=== PATIENT | female | born 1940 | race Caucasian/White ===

== ENCOUNTER 2019-06-10 23:10 | Inpatient (IN) | payer MEDICARE ==
[2019-06-11 00:21] LABS: #Basophils 0.1 thou/uL (0.0-0.2); #Lymphocytes 1.5 thou/uL (1.20-3.40); #Monocytes 0.7 thou/uL (0.11-0.59); #Neutrophils 9.1 thou/uL (1.40-6.50); %Basophils 0.5 % (0.0-1.0); %Eosinophils 0.3 % (0.0-10.0); %Monocytes 6.4 % (0.0-10.0); %Neutrophils 79.8 % (42.0-75.0); Hemoglobin 14.3 g/dL (12.0-16.0); Mean Corpuscular Hemoglobin 33.1 pg (27.0-31.0); Mean Corpuscular Volume 94.5 fL (78.0-98.0); Mean Platelet Volume 7.6 fL (7.4-10.4); Platelet Count 306 thou/uL (130-400); Red Blood Cell (RBC) Count 4.32 mill/uL (4.20-5.40); White Blood Cell (WBC) Count 11.5 thou/uL (4.8-10.8)
[2019-06-11 00:43] LABS: ALT (SGPT) 12 U/L (8-55); AST (SGOT) 21 U/L (5-34); Albumin 4.2 g/dL (3.4-4.8); Alkaline Phosphatase 94 U/L (40-150); Anion Gap 21 mmol/L (10-20); BUN (Urea Nitrogen) 56 mg/dL (9.8-20.1); Bilirubin, Total 0.2 mg/dL (0.2-1.2); CK (CPK) 203 U/L (29-168); Calc. Creatinine Clearance 0 mL/min (70-130); Calcium 8.8 mg/dL (7.8-10.44); Carbon Dioxide 10 mmol/L (23-31); Chloride 108 mmol/L (98-107); Estimated GFR-MDRD 17; Globulin 3.4 g/dL (2.4-3.5); Glucose 120 mg/dL (83-110); Potassium 3.6 mmol/L (3.5-5.1); Protein, Total 7.6 g/dL (6.0-8.3); Sodium 135 mmol/L (136-145)
[2019-06-11] MEDS ORDERED: Acetaminophen 650 MG Suppository PR PRN (01:18)
[2019-06-11] MEDS ORDERED: Dextrose 5 %-0.45 % NaCl 1,000 ML IV SCH (01:30)
[2019-06-11] MEDS ORDERED: Sodium Chloride 0.9% (PF) 10 ML VIAL FS PRN (02:11)
[2019-06-11] MEDS ORDERED: Pantoprazole 40 MG VIAL IVP SCH (02:15)
--- NOTE | 2019-06-11 02:15 | PDOC.EVN ---
Event Note - Event Note Event Note: [id number] H&P dictated
[2019-06-11 04:03] VITALS: BMI 28.3
[2019-06-11 04:52] LABS: #Basophils 0.1 thou/uL (0.0-0.2); #Lymphocytes 1.9 thou/uL (1.20-3.40); #Monocytes 0.7 thou/uL (0.11-0.59); #Neutrophils 6.8 thou/uL (1.40-6.50); %Basophils 0.7 % (0.0-1.0); %Eosinophils 0.4 % (0.0-10.0); %Monocytes 7.4 % (0.0-10.0); %Neutrophils 71.5 % (42.0-75.0); Hemoglobin 12.6 g/dL (12.0-16.0); Mean Corpuscular HGB CONC 34.3 g/dL (32.0-36.0); Mean Corpuscular Hemoglobin 32.8 pg (27.0-31.0); Mean Corpuscular Volume 95.6 fL (78.0-98.0); Mean Platelet Volume 7.6 fL (7.4-10.4); Platelet Count 275 thou/uL (130-400); RBC Distribution Width 12.9 % (11.5-14.5); Red Blood Cell (RBC) Count 3.84 mill/uL (4.20-5.40); White Blood Cell (WBC) Count 9.5 thou/uL (4.8-10.8)
[2019-06-11 05:12] LABS: Anion Gap 16 mmol/L (10-20); BUN (Urea Nitrogen) 55 mg/dL (9.8-20.1); Calc. Creatinine Clearance 23 mL/min (70-130); Chloride 111 mmol/L (98-107); Estimated GFR-MDRD 20; Glucose 108 mg/dL (83-110); Potassium 3.3 mmol/L (3.5-5.1); Sodium 133 mmol/L (136-145)
[2019-06-11 05:15] LABS: Carbon Dioxide 9 mmol/L (23-31)
--- NOTE | 2019-06-11 07:46 | HP ---
CHIEF COMPLAINT: Generalized weakness, nausea, and altered mental status. HISTORY OF PRESENT ILLNESS: Ms. Dangelo is a 79-year-old female with past medical history of coronary artery disease, type 2 diabetes, hyperlipidemia, hypertension, not on any medications, presented to the emergency room with generalized weakness, left hip pain, decreased oral intake, abdominal pain, and increasingly confused as per family. The patient stated that she has been having abdominal pain in the last few days and a pain for which she has been taking ibuprofen. Workup in the emergency room, the patient was found to be in acute renal failure with elevated creatinine. Imaging studies were done in the ED. Reports are not available at the time of dictation, but as per ER physician, no acute findings. The patient is being admitted to hospital for further management. PAST MEDICAL HISTORY: 1. Diabetes mellitus, type 2. 2. Hypertension. 3. Hyperlipidemia. 4. Coronary artery disease. PAST SURGICAL HISTORY: 1. Back surgery x2. 2. Coronary artery bypass graft surgery, 4-vessel. SOCIAL HISTORY: She is a cigarette smoker, about 1.5 pack a day. Denies alcohol drinking. ALLERGIES: ALLERGIC TO HYDROCODONE. HOME MEDICATIONS: None. FAMILY HISTORY: Reviewed and noncontributory. REVIEW OF SYSTEMS: Review of 14 systems negative except what is mentioned in history of present illness. PHYSICAL EXAMINATION: GENERAL: The patient is awake, alert, does not appear to be in acute distress. VITAL SIGNS: Blood pressure 160/57, pulse is 83, respiratory rate is 20, temperature is 97.5, pulse oximetry is 98% on 1 L/minute nasal cannula. HEAD AND NECK: Normocephalic and atraumatic. Neck is supple. No JVD. CHEST: Fair bilateral air entry. HEART: S1, S2. Regular. ABDOMEN: Soft with mid abdominal and epigastric tenderness, bowel sounds present. NEUROLOGIC: Awake, alert, oriented. No focal deficits. PSYCH: Unable to assess. EXTREMITIES: No clubbing, no cyanosis. LABORATORY DATA: WBC is 11.5, hemoglobin is 14.3, platelets 306. Sodium 135, potassium 3.6, BUN 56, creatinine 2.6, glucose 120. X-ray of the lumbar spine, chest x-ray, and brain CT done, report is not available at the time of dictation. ASSESSMENT: 1. Acute renal failure. 2. Acute metabolic encephalopathy. 3. Coronary artery disease with history of coronary artery bypass graft surgery. 4. Diabetes mellitus type 2, diet controlled. 5. Cigarette smoker. PLAN: 1. Admit. 2. Cautious IV fluid hydration. 3. Monitor kidney function and urine output. 4. Reassess fluid management in a.m. 5. May need Nephrology consultation in a.m. if no improvement. 6. Avoid nephrotoxic drugs. 7. DVT prophylaxis with SCDs. 8. Expected length of stay two midnights or more. Job ID: [id number]
--- NOTE | 2019-06-11 08:06 | CT ---
PRELIMINARY REPORT/[facility]/EMERGENCY AFTER HOURS PROCEDURE: EXAM: CT Head Without Contrast EXAM DATE/TIME: 06/11/2019 12:21 AM CLINICAL HISTORY: 79 years old, female; Weakness, extremity; Patient HX: Patient complains of left hip pain. . Family s tates that she has weakness and thinks she May be over medicating. TECHNIQUE: Imaging protocol: Computed tomography of the head without contrast. COMPARISON: No relevant prior studies available. FINDINGS: Brain: No mass effect or midline shift. No hemorrhage. Patchy whitte matter hypodensities are nonspec ific but may be seen in small vessel chronic ischemic changes. Ventricles: No ventriculomegaly. Bones/joints: No acute fracture. Sinuses: Visualized sinuses are unremarkable. No fluid levels. Mastoid air cells: Visualized mastoid air cells are well aerated. No mastoid effusion. Soft tissues: Unremarkable. IMPRESSION: No acute intracranial abnormality. Thank you for allowing us to participate in the care of your patient. Dictated and Authenticated by: Sandra Bass MD 06/11/2019 12:35 AM Central Time ([place] & [place]) FINAL REPORT EMERGENCY AFTER HOURS CT BRAIN: FINDINGS/IMPRESSION: I agree with the above provided preliminary interpretation from [facility]. No acute intracranial hemorrhage or mass effect. Compared to 11/06/10 exam. POS: TPC
[2019-06-11] MEDS ORDERED: Famotidine/PF 20 mg/2ml Vial SLOW IVP SCH (09:00)
[2019-06-11] MEDS: Heparin 5,000 UNITS/ML VIAL SC SCH ×2 (09:34→20:46)
[2019-06-11] MEDS: Pantoprazole 40 MG VIAL IVP SCH (09:35)
--- NOTE | 2019-06-11 09:42 | RAD ---
FRONTAL VIEW CHEST: COMPARISON: 06/18/2016. FINDINGS: There is hyperinflation of the lungs with interstitial prominence. Prior sternotomy. Cardiac silhou ette is stable. There is vascular calcification. IMPRESSION: Chronic obstructive pulmonary disease. POS: [facility]
--- NOTE | 2019-06-11 09:42 | RAD ---
LUMBAR SPINE RADIOGRAPH SERIES 2 TO 3 VIEWS: INDICATION: Pain. FINDINGS: Moderate multilevel degenerative changes throughout the lumbar spine are present. There is no acute compression fracture or significant subluxation. Diffuse atherosclerosis is seen. There is mild rig ht convexity curvature of the lumbar spine. IMPRESSION: Diffuse degenerative change without acute compression fracture or significant subluxation identified. POS: [facility]
[2019-06-11] MEDS ORDERED: Sodium Chloride 0.9% 1,000 ML IV SCH (09:45)
[2019-06-11 13:34] LABS: Bilirubin Negative (Negative); Blood, Urine Trace (Negative); Clarity Clear (Clear); Glucose, Urine (Dipstick) Normal (Negative); Leukocyte 25 Leu/uL (Negative); Nitrite Negative (Negative); Protein, Urine (Dipstick) 50 mg/dL (Neg-Trace); RBC/HPF 0-3 HPF (0-3); Squamous Epithelial 0-3 HPF (0-3); Urobilinogen Normal mg/dL (Less than 2); WBC/HPF 0-3 HPF (0-3)
[2019-06-11 13:38] LABS: Bacteria/HPF Rare-Few HPF (None Seen)
[2019-06-11] MEDS ORDERED: Sodium Bicarbonate 150 MEQ in Dextrose 5% in Water 1,000 ML IV SCH (16:00)
[2019-06-11] MEDS ORDERED: Potassium Chloride 40 MEQ in Sodium Chloride 0.9% 500 ML IVPB SCH (17:15)
[2019-06-11 17:46] LABS: Creatinine, Urine 53.93 mg/dL (47-110)
--- NOTE | 2019-06-11 17:54 | CON ---
DATE OF CONSULTATION: 06/11/2019 CONSULTING PHYSICIAN: Dr. Huang. REASON FOR CONSULT: Acute kidney injury. REASON FOR ADMISSION: Weakness and nausea. HISTORY OF PRESENT ILLNESS: This is a 79-year-old white female with history of type 2 diabetes, hypertension, hyperlipidemia, came to the hospital with weakness and she has been having a lot of back pain lately. She has not seen doctor for years now. Last lab was in creatinine was elevated and she remains confused. Nephrology is consulted. The patient is very somnolent. Family was at the bedside. The patient is not taking any medications. PAST MEDICAL HISTORY: Positive for type 2 diabetes, hypertension, hyperlipidemia, coronary artery disease. PAST SURGICAL HISTORY: Back surgery and prior CABG. HOME MEDICATIONS: None. ALLERGIES: TO HYDROCODONE. SOCIAL HISTORY: She smokes 1.5 pack a day. No alcohol use. FAMILY HISTORY: No history of kidney disease. REVIEW OF SYSTEMS: Could not be obtained as the patient is somnolent. PHYSICAL EXAMINATION: GENERAL: This is a thin built white female, no apparent distress. VITAL SIGNS: Temperature 97.6, pulse 78, respiratory rate 18, blood pressure 135/53. HEENT: Atraumatic and normocephalic. Oral mucosa moist. NECK: Supple. CV: S1 and S2 heard. Rate and rhythm regular. RESPIRATORY: Clear. GI: Abdomen is soft. MUSCULOSKELETAL: No tenderness. No edema. DERMATOLOGIC: No skin rash. NEUROLOGIC: Alert and awake. PSYCHIATRIC: Normal mood and affect. LABORATORY DATA: Hemoglobin is 12.6. Potassium 3.3, BUN is 55, creatinine is 2.3. Renal ultrasound is pending. ASSESSMENT AND PLAN: 1. Acute kidney injury. Creatinine is slightly better. We will continue hydration. 2. Severe metabolic acidosis. We will add bicarb. 3. Hypokalemia. We will add potassium supplements. We will check magnesium level. 4. Hyponatremia. 5. Edema, controlled. 6. We will check urine studies and ultrasound. 7. Avoid nephrotoxins. Continue hydration. We will add bicarb and monitor and replace potassium. Job ID: [id number]
--- NOTE | 2019-06-11 18:50 | ULT ---
US Renal Bilateral STANDARD: 06/11/2019 3:47 PM CLINICAL HISTORY: Acute kidney injury. STUDY: Renal ultrasound COMPARISON: None. FINDINGS: Right kidney: Echogenicity: Normal. Masses/cysts: Tiny anechoic cysts measuring up to 1.2 cm in size. Hydronephrosis: Minimal Calcifications: None. Length: 9.7 cm Left kidney: Echogenicity: Normal. Masses/cysts: None. Hydronephrosis: None. Calcifications: None. Length: 9.7 cm Limited visualization of the urinary bladder is unremarkable. IMPRESSION: 1. Minimal right hydronephrosis 2. Right renal cysts
[2019-06-12 05:41] LABS: ALT (SGPT) 14 U/L (8-55); AST (SGOT) 25 U/L (5-34); Albumin 3.4 g/dL (3.4-4.8); Alkaline Phosphatase 84 U/L (40-150); Anion Gap 13 mmol/L (10-20); BUN (Urea Nitrogen) 43 mg/dL (9.8-20.1); Bilirubin, Total 0.3 mg/dL (0.2-1.2); Calc. Creatinine Clearance 36 mL/min (70-130); Calcium 8.5 mg/dL (7.8-10.44); Carbon Dioxide 13 mmol/L (23-31); Chloride 116 mmol/L (98-107); Estimated GFR-MDRD 33; Globulin 2.9 g/dL (2.4-3.5); Glucose 121 mg/dL (83-110); Magnesium 2.2 mg/dL (1.6-2.6); Potassium 3.4 mmol/L (3.5-5.1); Protein, Total 6.3 g/dL (6.0-8.3); Sodium 139 mmol/L (136-145)
[2019-06-12] MEDS: Heparin 5,000 UNITS/ML VIAL SC SCH ×2 (08:53→20:00)
[2019-06-12] MEDS: Pantoprazole 40 MG VIAL IVP SCH (08:55)
[2019-06-12] MEDS ORDERED: Dextrose 5% in Water 1,000 ML IV PRN (11:29)
[2019-06-12] MEDS ORDERED: Dextrose 50% Abboject 50 ML SYRINGE SLOW IVP PRN (11:29)
--- NOTE | 2019-06-12 11:36 | PDOC.HOSPP ---
- Subjective Encounter Date: 06/12/19 Subjective: Two daughters at bedside, able to provide excellent history. Patient is in chair, eyes closed, drifts off to sleep intermittently, will awaken and answer questions. Speech slurred but per family this is improved. Sips of oral fluids. Daughter noted oxygen occasionally reading 80%; while in room, oxygen applied, order entered Baseline activity at home is good - she cooks/goes out on errands. AMS noted by family Sunday 06/10 - Objective Vital Signs & Weight: Vital Signs (12 hours) Temp Pulse Resp BP Pulse Ox 06/12/19 08:00 98.9 F 85 14 188/66 H 91 L 06/12/19 04:10 98.1 F 86 16 181/66 H 92 L Weight Admit Weight 164 lb Weight 164 lb 14.492 oz I&O: 06/11/19 06/12/19 06/13/19 06:59 06:59 06:59 Intake Total 300 800 Output Total 1670 Balance 300 -870 Result Diagrams: 06/11/19 04:27 06/12/19 04:06 Hospitalist ROS - Medication Medications: Active Medications Generic Name Dose Route Start Last Admin Trade Name Freq PRN Reason Stop Dose Admin Heparin Sodium (Porcine) 5,000 units 06/11/19 09:00 06/12/19 08:53 Heparin SC 5,000 units BID DAVID Administration Pantoprazole Sodium 40 mg 06/11/19 09:00 06/12/19 08:55 Protonix IVP 06/14/19 09:01 40 mg DAILY DAVID Administration - Exam General - other findings: Opens eyes briefly with stimulation, then drifts back to sleep Eye: PERRL ENT: dry oral mucosa Neck: supple Heart: RRR Heart - other findings: soft RUSB murmur Respiratory - other findings: Distant, fairly clear Gastrointestinal: soft, non-tender, non-distended Extremities: no edema Skin: no rashes Neurological: no focal deficits Neurological - other findings: slurred speech present, oriented to person, knows daughters names Musculoskeletal: generalized weakness Psychiatric - other findings: Oriented to person, "2019", "half-way" Hosp A/P (1) ARF (acute renal failure) Status: Acute (2) Metabolic acidosis Code(s): E87.2 - ACIDOSIS Status: Acute (3) Acute metabolic encephalopathy Code(s): G93.41 - METABOLIC ENCEPHALOPATHY Status: Acute (4) Coronary artery disease Code(s): I25.10 - ATHSCL HEART DISEASE OF [place] CORONARY ARTERY W/O ANG PCTRS Status: Acute (5) Type 2 diabetes mellitus Status: Acute (6) Tobacco dependence Code(s): F17.200 - NICOTINE DEPENDENCE, UNSPECIFIED, UNCOMPLICATED Status: Acute (7) COPD (chronic obstructive pulmonary disease) Status: Acute (8) Hypokalemia Code(s): E87.6 - HYPOKALEMIA Status: Acute - Plan PT/OT, DVT proph w/heparin Renal - appreciate Dr. Wright, renal US noted, per family urology consult planned. Profound metabolic acidosis without clear etiology; continue bicarb infusion, check AML; benavides noted on exam; appears intravascularly dry Encephalopathy - appears more global, less likely vascular event; general trend toward improvement PT/OT as able Endo - add accuchecks and ISS, clear liquids as tolerated, speech consult noted , participation limited due to encephalopathy DVT proph - heparin Tobacco dependence/COPD - add oxygen prn; goal sat >90%; consider recheck CXR tomorrow if not improving. Hypokalemia - repleted
[2019-06-12] MEDS ORDERED: Bisacodyl 10 MG SUPP PR PRN (14:27)
[2019-06-12] MEDS: Labetalol HCl 100 MG/20 ML VIAL SLOW IVP PRN (15:55)
[2019-06-12] MEDS ORDERED: Potassium Chloride 40 MEQ in Sodium Chloride 0.9% 250 ML 250 ML IVPB SCH (18:15)
--- NOTE | 2019-06-12 18:24 | PRG ---
DATE OF SERVICE: 06/12/2019 SUBJECTIVE: Patient was seen and examined at bedside and overnight events noted. Patient denies any shortness of breath or chest pain or palpitation. No history of nausea or vomiting or diarrhea or fever or chills or cramps. OBJECTIVE: GENERAL: This is an elderly female, in no apparent distress. VITAL SIGNS: Temperature 98.3. Heart rate 82. Respiratory rate 16. Blood pressure 178/60. HEENT: Atraumatic, normocephalic. Oral mucosa is moist NECK: Supple. CARDIOVASCULAR: S1, S2 heard. Rate and rhythm regular. RESPIRATORY: Clear to auscultation. GASTROINTESTINAL: Abdomen is soft. MUSCULOSKELETAL: No tenderness. No edema. DERMATOLOGIC: No skin rash. NEUROLOGIC: Alert and awake and oriented X3. No focal neurologic deficits. Moving all the extremities. PSYCHIATRIC: Mood and affect normal. LABORATORY DATA: Potassium is 3.4, BUN is 43, creatinine is 1.5. ASSESSMENT AND PLAN: 1. Acute kidney injury. Creatinine getting better. 2. Urinary retention. We will have continue on Phillips. We will have Urology consult. 3. Severe metabolic acidosis, better. We will monitor for now. Might add bicarb. 4. Hypokalemia. Replace and monitor. 5. Hyponatremia. 6. Edema, controlled. 7. Altered mentation, better. Renal function seems to be getting better. We will have Urology input also given the urinary retention. Continue Phillips for now. Job ID: [id number]
--- NOTE | 2019-06-12 21:35 | CT ---
CT Abdomen Pelvis WO Con: 06/12/2019 12:00 AM HISTORY: Hydronephrosis COMPARISON: None. TECHNIQUE: Multiple contiguous axial images were obtained and a CT of the abdomen and pelvis without IV contrast . Coronal and sagittal reformats were performed. FINDINGS: This examination is limited for the evaluation of solid organs and vascular structures due to the lac k of intravenous contrast. Lower Chest: Atelectasis in the lung bases. Abdomen: Liver: within normal limits. Bile Ducts: Normal caliber. Gallbladder: Removed Pancreas: within normal limits. Spleen: within normal limits. Adrenals: within normal limits. Kidneys: Subcentimeter hypodensities in both kidneys are too small to definitely characterize but lik efraín represent cysts. No hydronephrosis is seen. Pelvis: Reproductive Organs: No pelvic masses. Ureters: within normal limits. Bladder: Decompressed by a Phillips catheter. Bowel: Normal caliber. Scattered diverticula in the colon. Normal appendix Mesenteric Lymph Nodes: No enlarged mesenteric lymph nodes. Peritoneum: No ascites or free air, no fluid collection. Vessels: Atherosclerotic calcifications in the aorta Retroperitoneum: within normal limits. Abdominal Wall: within normal limits. Bones: Degenerative changes in the spine. IMPRESSION: 1. No evidence of acute intraabdominal or pelvic abnormality. 2. Diverticulosis 3. Bilateral renal cysts
[2019-06-13] MEDS ORDERED: cloNIDine 0.1 MG TAB PO PRN (00:48)
--- NOTE | 2019-06-13 01:16 | CON ---
DATE OF CONSULTATION: 06/12/2019 REQUESTING PHYSICIAN: Mary Wright MD REASON FOR CONSULTATION: Urinary retention. HISTORY OF PRESENT ILLNESS: Ms. Dangelo is a 79-year-old female with no significant past urologic history, who was admitted for altered mental status, abdominal pain, and acute kidney injury. The patient has been having right-sided abdominal and flank pain radiating to her hip for which she has been taking ibuprofen at home. The patient had worsening mental status and her family brought her to the emergency department. She was found to have acute kidney injury. Renal ultrasound demonstrated some very mild dilation of the right renal collecting system and normal left kidney. Per the medical record and per the family evidently, the patient was in urinary retention. Evidently, in and out catheter was performed, which demonstrated minimal residual. However, when indwelling Phillips catheter was placed, there was significant residual. This was not confirmed by Nursing clearly nor by the medical record, but this is the report of the family. The patient since being in the hospital has had very slow improvement in her mental status. The majority of the history is obtained from the medical record, as well as the patient's daughter. The patient's creatinine on admission was 2.38, this improved to 1.54. Urology was consulted for further evaluation. The patient's family denies any history of kidney stones. No recurrent urinary tract infections. She has never had to see a urologist before. She does not receive routine medical care. REVIEW OF SYSTEMS: Unable to obtain secondary to patient's condition. PAST MEDICAL HISTORY: Type 2 diabetes mellitus, hypertension, hyperlipidemia, coronary artery disease. PAST SURGICAL HISTORY: Back surgery x2, coronary artery bypass graft, four-vessel. SOCIAL HISTORY: Smokes 1.5 packs per day. No alcohol. ALLERGIES: HYDROCODONE. HOME MEDICATIONS: None. FAMILY HISTORY: Noncontributory. PHYSICAL EXAMINATION: VITAL SIGNS: Temperature is 98.3, pulse 82, blood pressure 197/71, oxygen saturation 94% on 2 L nasal cannula. GENERAL: She is somnolent in bed, in no apparent distress. HEENT: Normocephalic, atraumatic. NECK: Supple. No masses or lymphadenopathy. CARDIOVASCULAR: Regular rate and rhythm. PULMONARY: Breathing unlabored. ABDOMEN: Soft, thin, nontender/nondistended. No masses or organomegaly. No suprapubic tenderness to palpation. No CVA tenderness. GENITOURINARY: Phillips catheter is in place, draining clear yellow urine. EXTREMITIES: Warm, well perfused. No edema. NEUROLOGIC: The patient able to be awakened and will answer questions, although is somewhat somnolent. RADIOLOGY DATA: Renal ultrasound demonstrates minimal right hydronephrosis and right renal cysts. LABORATORY DATA: White blood cell count 9.5, at admission was 11.5; hemoglobin 12.6; hematocrit 36.7; platelets 275. Sodium 139, potassium 3.4, chloride 116, bicarb 13, BUN 43, creatinine 1.54, 2.3 on admission. ASSESSMENT: A 79-year-old female with minimal right hydronephrosis, acute kidney injury, possible urinary retention, altered mental status. PLAN: Etiology of the patient's symptoms is unclear. It is also unclear whether or not she was truly in urinary retention. She did not have bilateral hydronephrosis and there was only very minimal dilation of the right collecting system on her ultrasound, so etiology of the acute kidney injury may be multifactorial and not entirely obstructive in nature. We will obtain a CT of the abdomen and pelvis to further evaluate the hydronephrosis. This may have resolved and no other Phillips catheter is in place. Further recommendations to follow based on CT results. If CT is normal, will plan to leave the patient's Phillips catheter in place and she can follow up with Urology as an outpatient for further workup of her urinary retention. Thank you for allowing me to participate in the care of this patient. Job ID: [id number]
[2019-06-13 05:46] LABS: #Lymphocytes 1.9 thou/uL (1.20-3.40); #Monocytes 0.8 thou/uL (0.11-0.59); #Neutrophils 4.5 thou/uL (1.40-6.50); %Basophils 0.6 % (0.0-1.0); %Eosinophils 0.6 % (0.0-10.0); %Lymphocytes 26.7 % (21.0-51.0); %Monocytes 10.6 % (0.0-10.0); %Neutrophils 61.5 % (42.0-75.0); Hemoglobin 11.8 g/dL (12.0-16.0); Mean Corpuscular HGB CONC 33.8 g/dL (32.0-36.0); Mean Corpuscular Hemoglobin 32.4 pg (27.0-31.0); Mean Corpuscular Volume 95.6 fL (78.0-98.0); Mean Platelet Volume 7.2 fL (7.4-10.4); Platelet Count 305 thou/uL (130-400); RBC Distribution Width 12.9 % (11.5-14.5); Red Blood Cell (RBC) Count 3.64 mill/uL (4.20-5.40); White Blood Cell (WBC) Count 7.3 thou/uL (4.8-10.8)
[2019-06-13 06:17] LABS: Anion Gap 12 mmol/L (10-20); BUN (Urea Nitrogen) 29 mg/dL (9.8-20.1); Calc. Creatinine Clearance 56 mL/min (70-130); Calcium 9.4 mg/dL (7.8-10.44); Carbon Dioxide 19 mmol/L (23-31); Chloride 116 mmol/L (98-107); Estimated GFR-MDRD 55; Glucose 111 mg/dL (83-110); Potassium 3.7 mmol/L (3.5-5.1); Sodium 143 mmol/L (136-145)
[2019-06-13] MEDS: Heparin 5,000 UNITS/ML VIAL SC SCH ×2 (09:02→20:48)
[2019-06-13] MEDS: Pantoprazole 40 MG VIAL IVP SCH (09:04)
--- NOTE | 2019-06-13 13:02 | PQF ---
CLINICAL DOCUMENTATION IMPROVEMENT CLARIFICATION FORM: ICD-10 Updated PLEASE DO AN ADDENDUM TO THE PROGRESS NOTE WITH ANY DOCUMENTATION UPDATES OR ADDITIONS AND CARRY THROUGH TO DC SUMMARY. THANK YOU. Date: 06/13/19 ATTN: DR. OSCAR Please exercise your independent, professional judgment in responding to the clarification form. Clinical indicators are provided on the bottom of this form for your review Please check appropriate box(s): [ ] Protein Calorie Malnutrition: [ ] Mild [ x] Moderate [ ] Severe [ ] Other Malnutrition (please specify) __ [ ] Underweight without malnutrition [ ] Cachexia [ ] Other diagnosis [ ] Unable to determine In addition, please specify: Present on Admission (POA): [ x ] Yes [ ] No [ ] Unable to determine CLINICAL INDICATORS - SIGNS / SYMPTOMS / LABS DIETARY NOTE 06/11: "NOT BEEN EATING WELL FOR 3 WEEKS...ONLY BITES HERE AND THERE." "SEVERE TEMPORAL MUSCLE WASTING OBSERVED" NURSING ASSESSMENT 06/12: "WEAK AND CHAIRFAST" OCCUPATIONAL THERAPY NOTE 06/11: "IMPAIRED ADLS, DECREASED FUNCTIONAL MOBILITY, DECREASED ACTIVITY TOLERANCE" RISKS: ADVANCED AGE ACUTE RENAL FAILURE (H&P 03/11) DIABETES (H&P 06/11) DECREASED COGNITION (PER OCCUPATIONAL THERAPY NOTE 06/11) TREATMENT: RECOMMENDATIONS FOR NUTRITIONAL SUPPLEMENTS TID (PER DIETARY NOTE 06/11) Moderate Malnutrition (in acute illness) Energy Intake: <75% of estimated energy requirement for > 7 days Weight Loss: 1-2%/1 week; 5%/ 1 month; 7.5%/3 months Other: mild body fat loss; mild muscle mass loss; mild fluid accumulation; Severe Malnutrition (in acute illness) Energy Intake: < 50% of estimated energy requirement for > 5 days Weight Loss: >1-2%/1 week; >5%/1 month; >7.5%/3 months Other: moderate body fat loss; moderate muscle mass loss; moderate- severe fluid accumulation; measurably reduced candy packer strength Moderate Malnutrition (in chronic illness) Energy Intake: <75% of estimated energy requirement for >1 month Weight Loss: 5%/1 month; 7.5%/3 months; 10%/6 months; 20%/1 year Other: mild body fat loss; mild muscle mass loss; mild fluid accumulation Severe Malnutrition (in chronic illness) Energy Intake: <75% of estimated energy requirement for >1 month Weight Loss: >5%/1 month; >7.5%/3 months; >10%/6 months; >20%/1 year Other: severe body fat loss; severe muscle mass loss; severe fluid accumulation ; measurably reduced candy packer strength (This form is maintained as a part of the permanent medical record) 2014 [employer] All Rights Reserved [email or web address] Office: [phone] [facility]
--- NOTE | 2019-06-13 14:12 | PRG ---
DATE OF SERVICE: 06/13/2019 SUBJECTIVE: Patient was seen and examined at bedside and overnight events noted. Patient denies any shortness of breath or chest pain or palpitation. No history of nausea or vomiting or diarrhea or fever or chills or cramps. OBJECTIVE: GENERAL: This is a well-built female, in no apparent distress. VITAL SIGNS: Temperature 97.6. Heart rate 79. Respiratory rate 18. Blood pressure 192/73. HEENT: Atraumatic, normocephalic. Oral mucosa is moist NECK: Supple. CARDIOVASCULAR: S1, S2 heard. Rate and rhythm regular. RESPIRATORY: Clear to auscultation. GASTROINTESTINAL: Abdomen is soft. MUSCULOSKELETAL: No tenderness. No edema. DERMATOLOGIC: No skin rash. NEUROLOGIC: Alert and awake and oriented X3. No focal neurologic deficits. Moving all the extremities. PSYCHIATRIC: Mood and affect normal. LABORATORY DATA: Potassium is 3.7, BUN is 29, and creatinine is 0.9. ASSESSMENT AND PLAN: 1. Acute kidney injury, much better, almost back to normal. 2. Urinary retention. Follow Urology. 3. Metabolic acidosis. Getting better. 4. Hypokalemia. Replace and monitor. 5. Hyponatremia. 6. Edema. Controlled. 7. Altered mentation. Better. Stop IV fluids and monitor renal function. Continue potassium supplements if needed. Potassium seems to be stable today. Job ID: [id number]
--- NOTE | 2019-06-13 15:03 | PDOC.HOSPP ---
- Subjective Encounter Date: 06/13/19 Encounter Time: 13:45 Subjective: pt up in bed no complains. family at bedside - Objective Vital Signs & Weight: Vital Signs (12 hours) Temp Pulse Resp BP Pulse Ox 06/13/19 11:23 97.6 F 79 18 192/73 H 91 L 06/13/19 07:36 97.6 F 68 15 165/58 H 91 L 06/13/19 03:20 97.9 F 69 16 165/71 H 93 L Weight Admit Weight 164 lb Weight 164 lb 14.492 oz I&O: 06/12/19 06/13/19 06/14/19 06:59 06:59 06:59 Intake Total 800 590 Output Total 3100 1375 Balance -460 -325 Result Diagrams: 06/13/19 05:19 06/13/19 05:19 Additional Labs: Accuchecks 06/13/19 06/13/19 06/12/19 11:07 05:07 21:01 POC Glucose 137 H 127 H 137 H 06/12/19 16:27 POC Glucose 105 Hospitalist ROS - Review of Systems Respiratory: denies: cough, dry, shortness of breath, hemoptysis, SOB with excertion, pleuritic pain, sputum, wheezing, other Cardiovascular: denies: chest pain, palpitations, orthopnea, paroxysmal noc. dyspnea, edema, light headedness, other Gastrointestinal: denies: nausea, vomiting, abdominal pain, diarrhea, constipation, melena, hematochezia, other - Medication Medications: Active Medications Generic Name Dose Route Start Last Admin Trade Name Freq PRN Reason Stop Dose Admin Bisacodyl 10 mg 06/12/19 14:27 06/12/19 15:56 Dulcolax [place] 10 mg DAILYPRN PRN Administration Constipation Clonidine 0.1 mg 06/13/19 00:48 06/13/19 00:54 Catapres PO 0.1 mg Q4H PRN Administration SBP Greater Than 180 Heparin Sodium (Porcine) 5,000 units 06/11/19 09:00 06/13/19 09:02 Heparin SC 5,000 units BID DAVID Administration Labetalol HCl 10 mg 06/12/19 13:03 06/13/19 00:00 Normodyne SLOW IVP 10 mg Q4H PRN Administration SBP Greater Than 180 Pantoprazole Sodium 40 mg 06/11/19 09:00 06/13/19 09:04 Protonix IVP 06/14/19 09:01 40 mg DAILY DAVID Administration - Exam Neck: negative: supple, symmetric, no JVD, no thyromegaly, no lymphadenopathy, no carotid bruit, JVD Heart: negative: RRR, no murmur, no gallops, no rubs, normal peripheral pulses, irregular, diminshed peripheral pulses, murmur present, II/IV, III/IV Respiratory: negative: CTAB, no wheezes, no rales, no ronchi, normal chest expansion, no tachypnea, normal percussion, rales, rhonchi, tachypneic, wheezes Hosp A/P (1) Acute metabolic encephalopathy Code(s): G93.41 - METABOLIC ENCEPHALOPATHY Status: Acute (2) ARF (acute renal failure) Status: Acute (3) COPD (chronic obstructive pulmonary disease) Status: Acute (4) Metabolic acidosis Code(s): E87.2 - ACIDOSIS Status: Acute (5) Type 2 diabetes mellitus Status: Acute - Plan pt feels much better today. daughter updated, sebastien improved, will leave benavides in per urology recommendation. will get a echo
[2019-06-13] MEDS: Labetalol HCl 100 MG/20 ML VIAL SLOW IVP PRN ×2 (20:46)
[2019-06-14] MEDS: Labetalol HCl 100 MG/20 ML VIAL SLOW IVP PRN (03:45)
[2019-06-14] MEDS: Heparin 5,000 UNITS/ML VIAL SC SCH ×2 (08:29→21:02)
[2019-06-14] MEDS: Pantoprazole 40 MG VIAL IVP SCH (08:29)
[2019-06-14 10:30] LABS: Anion Gap 11 mmol/L (10-20); BUN (Urea Nitrogen) 24 mg/dL (9.8-20.1); Calc. Creatinine Clearance 58 mL/min (70-130); Calcium 9.2 mg/dL (7.8-10.44); Carbon Dioxide 19 mmol/L (23-31); Chloride 114 mmol/L (98-107); Estimated GFR-MDRD 58; Glucose 204 mg/dL (83-110); Potassium 3.4 mmol/L (3.5-5.1); Sodium 141 mmol/L (136-145)
--- NOTE | 2019-06-14 14:34 | PDOC.HOSPP ---
- Subjective Encounter Date: 06/14/19 Encounter Time: 12:55 Subjective: pt up in bed feels well. - Objective Vital Signs & Weight: Vital Signs (12 hours) Temp Pulse Resp BP BP Pulse Ox 06/14/19 11:25 98.1 F 69 14 172/67 H 95 06/14/19 08:27 164/67 H 06/14/19 07:58 98.2 F 72 16 96 06/14/19 04:14 158/70 H 06/14/19 03:45 72 182/63 H 06/14/19 03:35 98.4 F 74 16 94 L 06/14/19 03:04 93 L Weight Admit Weight 164 lb Weight 164 lb 14.492 oz I&O: 06/13/19 06/14/19 06/15/19 06:59 06:59 06:59 Intake Total 590 430 Output Total 1375 1000 Balance -789 -146 Result Diagrams: 06/13/19 05:19 06/14/19 09:27 Additional Labs: Accuchecks 06/14/19 06/14/19 06/13/19 11:26 05:09 20:51 POC Glucose 153 H 148 H 149 H 06/13/19 15:44 POC Glucose 100 Hospitalist ROS - Review of Systems Respiratory: denies: cough, dry, shortness of breath, hemoptysis, SOB with excertion, pleuritic pain, sputum, wheezing, other Cardiovascular: denies: chest pain, palpitations, orthopnea, paroxysmal noc. dyspnea, edema, light headedness, other Gastrointestinal: denies: nausea, vomiting, abdominal pain, diarrhea, constipation, melena, hematochezia, other - Medication Medications: Active Medications Generic Name Dose Route Start Last Admin Trade Name Freq PRN Reason Stop Dose Admin Bisacodyl 10 mg 06/12/19 14:27 06/12/19 15:56 Dulcolax [place] 10 mg DAILYPRN PRN Administration Constipation Clonidine 0.1 mg 06/13/19 00:48 06/13/19 00:54 Catapres PO 0.1 mg Q4H PRN Administration SBP Greater Than 180 Heparin Sodium (Porcine) 5,000 units 06/11/19 09:00 06/14/19 08:29 Heparin SC 5,000 units BID DAVID Administration Labetalol HCl 10 mg 06/12/19 13:03 06/14/19 03:45 Normodyne SLOW IVP 10 mg Q4H PRN Administration SBP Greater Than 180 - Exam Heart: negative: RRR, no murmur, no gallops, no rubs, normal peripheral pulses, irregular, diminshed peripheral pulses, murmur present, II/IV, III/IV Respiratory: negative: CTAB, no wheezes, no rales, no ronchi, normal chest expansion, no tachypnea, normal percussion, rales, rhonchi, tachypneic, wheezes Gastrointestinal: negative: soft, non-tender, non-distended, normal bowel sounds , no palpable masses, no hepatomegaly, no splenomegaly, no bruit, no guarding, no rigidity, tender to palpation, distended, diminished bowl sounds, voluntary guarding Hosp A/P (1) Acute metabolic encephalopathy Code(s): G93.41 - METABOLIC ENCEPHALOPATHY Status: Acute (2) ARF (acute renal failure) Status: Acute (3) COPD (chronic obstructive pulmonary disease) Status: Acute (4) Metabolic acidosis Code(s): E87.2 - ACIDOSIS Status: Acute (5) Type 2 diabetes mellitus Status: Acute - Plan pt feels much better today. daughter updated, sebastien improved, will leave benavides in per urology recommendation. will get a echo 06/14 pt's echo pending, sebastien resolved, will replace k
[2019-06-14] MEDS ORDERED: Potassium Chloride 20 MEQ TAB PO SCH (14:45)
[2019-06-14] MEDS ORDERED: Carvedilol 6.25 MG TAB PO SCH (18:15)
--- NOTE | 2019-06-14 19:09 | PRG ---
DATE OF SERVICE: 06/14/2019 SUBJECTIVE: Patient was seen and examined at bedside and overnight events noted. Patient denies any shortness of breath or chest pain or palpitation. No history of nausea or vomiting or diarrhea or fever or chills or cramps. OBJECTIVE: GENERAL: This is an elderly female, in no apparent distress. VITAL SIGNS: Temperature 98.6. Pulse 76. Respiratory rate 14. Blood pressure 172/67. HEENT: Atraumatic, normocephalic. Oral mucosa is moist NECK: Supple. CARDIOVASCULAR: S1, S2 heard. Rate and rhythm regular. RESPIRATORY: Clear to auscultation. GASTROINTESTINAL: Abdomen is soft. MUSCULOSKELETAL: No tenderness. No edema. DERMATOLOGIC: No skin rash. NEUROLOGIC: Alert and awake and oriented X3. No focal neurologic deficits. Moving all the extremities. PSYCHIATRIC: Mood and affect normal. LABORATORY DATA: Potassium 3.4, BUN is 24, and creatinine is 0.9. ASSESSMENT AND PLAN: 1. Acute kidney injury, much better. 2. Urinary retention. We will follow Urology. 3. Hypokalemia, replaced. 4. Hyponatremia. 5. Edema, controlled. 6. Altered mentation. Replace potassium. Titrate blood pressure medicines. I will sign off. Please call back with any questions. Job ID: [id number]
[2019-06-15 05:22] LABS: Anion Gap 8 mmol/L (10-20); BUN (Urea Nitrogen) 20 mg/dL (9.8-20.1); Calc. Creatinine Clearance 58 mL/min (70-130); Calcium 9.4 mg/dL (7.8-10.44); Carbon Dioxide 24 mmol/L (23-31); Chloride 112 mmol/L (98-107); Estimated GFR-MDRD 58; Glucose 152 mg/dL (83-110); Potassium 3.5 mmol/L (3.5-5.1); Sodium 140 mmol/L (136-145)
[2019-06-15] MEDS: HumaLOG 300 UNITS/3 ML VIAL SC PRN ×3 (05:42→20:53)
[2019-06-15] MEDS: Carvedilol 6.25 MG TAB PO SCH ×2 (09:00→17:51)
[2019-06-15] MEDS: Heparin 5,000 UNITS/ML VIAL SC SCH ×2 (09:00→20:41)
--- NOTE | 2019-06-15 12:06 | PDOC.HOSPP ---
- Subjective Encounter Date: 06/15/19 Encounter Time: 11:30 Subjective: pt up in bed no complains, daughter states that at rest her oxygen drops, when nursing ambulated pt she was 92% - Objective Vital Signs & Weight: Vital Signs (12 hours) Temp Pulse Resp BP Pulse Ox 06/15/19 11:28 97.8 F 65 16 115/64 92 L 06/15/19 08:00 98.0 F 69 16 160/69 H 95 06/15/19 05:28 93 L 06/15/19 03:50 98.1 F 68 16 148/56 H 92 L Weight Admit Weight 164 lb Weight 164 lb 14.492 oz I&O: 06/14/19 06/15/19 06/16/19 06:59 06:59 06:59 Intake Total 430 1150 Output Total 1000 775 Balance -570 375 Result Diagrams: 06/13/19 05:19 06/15/19 04:41 Additional Labs: Accuchecks 06/15/19 06/15/19 06/14/19 11:46 05:20 21:25 POC Glucose 196 H 185 H 96 06/14/19 06/14/19 15:21 11:26 POC Glucose 100 153 H Hospitalist ROS - Review of Systems Respiratory: denies: cough, dry, shortness of breath, hemoptysis, SOB with excertion, pleuritic pain, sputum, wheezing, other Cardiovascular: denies: chest pain, palpitations, orthopnea, paroxysmal noc. dyspnea, edema, light headedness, other Gastrointestinal: denies: nausea, vomiting, abdominal pain, diarrhea, constipation, melena, hematochezia, other - Medication Medications: Active Medications Generic Name Dose Route Start Last Admin Trade Name Freq PRN Reason Stop Dose Admin Bisacodyl 10 mg 06/12/19 14:27 06/12/19 15:56 Dulcolax [place] 10 mg DAILYPRN PRN Administration Constipation Carvedilol 12.5 mg 06/15/19 08:00 06/15/19 09:00 Coreg PO 12.5 mg BID-WM DAVID Administration Clonidine 0.1 mg 06/13/19 00:48 06/13/19 00:54 Catapres PO 0.1 mg Q4H PRN Administration SBP Greater Than 180 Heparin Sodium (Porcine) 5,000 units 06/11/19 09:00 06/15/19 09:00 Heparin SC 5,000 units BID DAVID Administration Insulin Human Lispro 0 units 06/12/19 11:29 06/15/19 11:47 Humalog SC 2 unit .MILD SLIDING SCALE PRN Administration Mild Correctional Scale Labetalol HCl 10 mg 06/12/19 13:03 06/14/19 03:45 Normodyne SLOW IVP 10 mg Q4H PRN Administration SBP Greater Than 180 - Exam Neck: negative: supple, symmetric, no JVD, no thyromegaly, no lymphadenopathy, no carotid bruit, JVD Heart: negative: RRR, no murmur, no gallops, no rubs, normal peripheral pulses, irregular, diminshed peripheral pulses, murmur present, II/IV, III/IV Respiratory: negative: CTAB, no wheezes, no rales, no ronchi, normal chest expansion, no tachypnea, normal percussion, rales, rhonchi, tachypneic, wheezes Hosp A/P (1) Acute metabolic encephalopathy Code(s): G93.41 - METABOLIC ENCEPHALOPATHY Status: Acute (2) ARF (acute renal failure) Status: Acute (3) COPD (chronic obstructive pulmonary disease) Status: Acute (4) Metabolic acidosis Code(s): E87.2 - ACIDOSIS Status: Acute (5) Type 2 diabetes mellitus Status: Acute - Plan pt feels much better today. daughter updated, sebastien improved, will leave benavides in per urology recommendation. will get a echo 06/14 pt's echo pending, sebastien resolved, will replace k 06/15 echo just got done today, will need to wait for read. pt's daughter concern for her variable oxygen. will ask nurse to use the same pulse ox that was used for ambulate to use at rest. her creatinine is stable. she will need to follow up with pulmonary and primary which she does not have.
[2019-06-16] MEDS ORDERED: Cepastat Lozenges 1 LOZ PO PRN (08:41)
[2019-06-16] MEDS ORDERED: Senokot S 8.6-50 MG TAB PO PRN (08:41)
[2019-06-16] MEDS ORDERED: Artificial Tears 18 DROP/0.9 ML EA EYE PRN (08:41)
[2019-06-16] MEDS ORDERED: Diabetic Tussin 200 MG/10 ML UDCUP PO PRN (08:41)
[2019-06-16] MEDS ORDERED: Sodium Chloride 0.65% Nasal 44 ML BOT EA NARE PRN (08:41)
[2019-06-16] MEDS ORDERED: Ondansetron ODT 4 MG TAB SL PRN (08:41)
[2019-06-16] MEDS ORDERED: Acetaminophen 325 MG TAB PO PRN (08:41)
[2019-06-16] MEDS ORDERED: Loperamide HCl 2 MG CAP PO PRN (08:41)
[2019-06-16] MEDS ORDERED: Loratadine 10 MG TAB PO PRN (08:41)
[2019-06-16] MEDS ORDERED: Ondansetron PF 4 MG/2 ML Vial IVP PRN (08:41)
[2019-06-16] MEDS ORDERED: Zolpidem Tartrate 5 MG TAB PO PRN (08:41)
[2019-06-16] MEDS: Carvedilol 6.25 MG TAB PO SCH (08:57)
[2019-06-16] MEDS: Heparin 5,000 UNITS/ML VIAL SC SCH (08:57)
--- NOTE | 2019-06-16 10:52 | PDOC.HOSPP ---
- Subjective Encounter Date: 06/16/19 Encounter Time: 08:00 Subjective: Patient seen and examined. No new complaints. No overnight events - Objective Vital Signs & Weight: Vital Signs (12 hours) Temp Pulse Resp BP BP Pulse Ox 06/16/19 08:57 155/66 H 06/16/19 07:09 98.4 F 65 18 155/66 H 91 L 06/16/19 03:53 98.1 F 66 16 131/54 L 91 L 06/16/19 01:17 95 06/15/19 23:38 98.1 F 60 16 156/54 H 94 L Weight Admit Weight 164 lb Weight 164 lb 14.492 oz I&O: 06/15/19 06/16/19 06/17/19 06:59 06:59 06:59 Intake Total 1150 600 Output Total 775 1550 Balance 375 -950 Result Diagrams: 06/13/19 05:19 06/15/19 04:41 Additional Labs: Accuchecks 06/16/19 06/16/19 06/15/19 10:33 05:17 20:53 POC Glucose 203 H 98 181 H 06/15/19 06/15/19 16:01 11:46 POC Glucose 114 H 196 H Hospitalist ROS - Review of Systems ENT: denies: ear pain, ear discharge, nose pain, nose discharge, nose congestion , mouth pain, mouth swelling, throat pain, throat swelling, other Respiratory: denies: cough, dry, shortness of breath, hemoptysis, SOB with excertion, pleuritic pain, sputum, wheezing, other Cardiovascular: denies: chest pain, palpitations, orthopnea, paroxysmal noc. dyspnea, edema, light headedness, other Gastrointestinal: denies: nausea, vomiting, abdominal pain, diarrhea, constipation, melena, hematochezia, other Genitourinary: denies: dysuria, frequency, incontinence, hematuria, retention, other Musculoskeletal: denies: neck pain, shoulder pain, arm pain, back pain, hand pain, leg pain, foot pain, other Skin: denies: rash, lesions, toni, bruising, other - Medication Medications: Active Medications Generic Name Dose Route Start Last Admin Trade Name Freq PRN Reason Stop Dose Admin Bisacodyl 10 mg 06/12/19 14:27 06/12/19 15:56 Dulcolax [place] 10 mg DAILYPRN PRN Administration Constipation Carvedilol 12.5 mg 06/15/19 08:00 06/16/19 08:57 Coreg PO 12.5 mg BID-WM DAVID Administration Clonidine 0.1 mg 06/13/19 00:48 06/13/19 00:54 Catapres PO 0.1 mg Q4H PRN Administration SBP Greater Than 180 Heparin Sodium (Porcine) 5,000 units 06/11/19 09:00 06/16/19 08:57 Heparin SC 5,000 units BID DAVID Administration Insulin Human Lispro 0 units 06/12/19 11:29 06/15/19 20:53 Humalog SC 2 unit .MILD SLIDING SCALE PRN Administration Mild Correctional Scale Labetalol HCl 10 mg 06/12/19 13:03 06/14/19 03:45 Normodyne SLOW IVP 10 mg Q4H PRN Administration SBP Greater Than 180 - Exam General Appearance: NAD, awake alert Eye: PERRL, anicteric sclera ENT: normocephalic atraumatic, no oropharyngeal lesions Neck: supple, symmetric, no JVD, no thyromegaly Heart: RRR, no gallops, no rubs, normal peripheral pulses, murmur present, III/ IV Respiratory: CTAB, no wheezes, no rales, no ronchi Gastrointestinal: soft, non-tender, non-distended, normal bowel sounds Extremities: no cyanosis, no clubbing, no edema Skin: normal turgor, no lesions Neurological: cranial nerve grossly intact, no focal deficits Musculoskeletal: normal tone, normal strength Psychiatric: normal affect, normal behavior Hosp A/P (1) ARF (acute renal failure) Status: Acute (2) COPD (chronic obstructive pulmonary disease) Status: Acute (3) Coronary artery disease Code(s): I25.10 - ATHSCL HEART DISEASE OF [place] CORONARY ARTERY W/O ANG PCTRS Status: Acute (4) Tobacco dependence Code(s): F17.200 - NICOTINE DEPENDENCE, UNSPECIFIED, UNCOMPLICATED Status: Acute (5) Type 2 diabetes mellitus Status: Acute - Plan old records reviewed/req, plan discussed w/ family, benavides catheter, foster care social worker will add metformin, continue coreg home health echo pending result DC to home
[2019-06-16 11:05] VITALS: BP 150/71; TEMP 97.4
--- NOTE | 2019-06-16 12:08 | DIS ---
DATE OF ADMISSION: 06/11/2019 DATE OF DISCHARGE: 06/16/2019 PRIMARY CARE PHYSICIAN: [facility] Call admission. DISCHARGE DISPOSITION: Home with home health. PRIMARY DISCHARGE DIAGNOSES: 1. Acute metabolic encephalopathy, resolved. 2. Acute kidney failure, improved. SECONDARY DISCHARGE DIAGNOSES: 1. Diabetes type 2. 2. Tobacco abuse disorder. 3. Chronic obstructive pulmonary disease. 4. Coronary artery disease. PRIMARY PROCEDURE/OPERATION: None. RADIOLOGICAL INVESTIGATION: CT brain negative for any acute intracranial process. Chest x-ray negative for any acute cardiopulmonary process. CT abdomen and pelvis showed diverticulosis. Renal ultrasound was negative for any hydronephrosis. Lumbar spine x-rays also unremarkable. SIGNIFICANT LABORATORY DATA: WBC 7.3, hemoglobin 11.8, platelets 305. Sodium 140, potassium 3.5, BUN 20, creatinine 0.94, calcium 9.4. DISCHARGE MEDICATIONS: 1. Coreg 12.5 mg twice daily. 2. Metformin 500 mg p.o. b.i.d. CONTRAINDICATION: None. CODE STATUS: Full code. INPATIENT SAP BASIS CONSULTANT: Urology, Dr. Mara Figueroa consulted while in hospital for urinary retention and he recommended to leave Phillips catheter in on discharge and outpatient voiding trial. Dr. Wright was following for acute kidney failure. TEST RESULTS PENDING ON DISCHARGE: None. ALLERGIES: HYDROCODONE. DISCHARGE PLAN: Posthospital, the patient will follow up with primary care physician. The patient's family member instructed to follow up with Urology in 1 week and make appointment with Nephrology if needed. HOSPITAL COURSE: A 79-year-old female with above-mentioned medical problem, who was admitted by Dr. Gonzalez. Please see his H and P for further details. On admission, the patient had urinary retention. She had acute kidney failure. Her creatinine on admission was 2.67 with metabolic acidosis. The patient also had hypokalemia. The patient was treated with IV fluid. Her potassium was replaced. Her renal function improved to normal. Urology was consulted for urinary retention, and Nephrology was following for acute kidney failure. Urology recommended to leave Phillips catheter in. The patient had mild right-sided hydronephrosis of unclear etiology. Urology will do further evaluation as an outpatient basis. We prescribed metformin for diabetes and Coreg for high blood pressure. Rest of medications she will get from her primary care physician. Smoking cessation counseling given healthy lifestyle measure discussed with the patient. We are arranging home health upon discharge for intermediate and PT. The patient is seen and examined at bedside today. Please see my progress note from today for further details. This patient has murmur, and echocardiography was obtained, result is pending by the time of dictation. The patient's primary care physician will follow up on the echo result. Job ID: [id number]
--- NOTE | 2019-06-16 13:21 | EKG ---
Test Reason : Blood Pressure : / mmHG Vent. Rate : 082 BPM Atrial Rate : 082 BPM P-R Int : 184 ms QRS Dur : 138 ms QT Int : 410 ms P-R-T Axes : 077 -23 126 degrees QTc Int : 479 ms Normal sinus rhythm Possible Left atrial enlargement Left ventricular hypertrophy with QRS widening and repolarization abnormality Abnormal ECG Confirmed by OLIVE SIDDIQI ([id number]), supervising editor news reel MODE NEGRETE ([id number]) on 06/16/2019 1:21:20 PM Referred By: Confirmed By:OLIVE SIDDIQI
== END 2019-06-16 15:15 | disposition home health service (06) | DRG 682 ==
LOC: ERS 23:10 → SURG A 06-11 01:10
PROVIDERS: ADMIT Internal Medicine; ATTEND Internal Medicine
DX: N17.9 Acute kidney failure, unspecified (principal); G93.41 Metabolic encephalopathy; E87.1 Hypo-osmolality and hyponatremia; E87.2 Acidosis; E44.0 Moderate protein-calorie malnutrition; E11.9 Type 2 diabetes mellitus without complications; I10 Essential (primary) hypertension; E78.5 Hyperlipidemia, unspecified; I25.10 Atherosclerotic heart disease of native coronary artery without angina pectoris; F17.210 Nicotine dependence, cigarettes, uncomplicated; E87.6 Hypokalemia; J44.9 Chronic obstructive pulmonary disease, unspecified; R33.9 Retention of urine, unspecified; N13.30 Unspecified hydronephrosis; Z95.1 Presence of aortocoronary bypass graft; Z88.5 Allergy status to narcotic agent; Z68.28 Body mass index [BMI] 28.0-28.9, adult; Z71.6 Tobacco abuse counseling
CPT/HCPCS: 36415; 36416; 70450; 71045; 72100; 74176; 76770; 80048; 80053; 81001; 82550; 82570; 83735; 83880; 84156; 84484; 85025; 93005; 93306; C9113; J1644; J3480; J7050; J7070

== ENCOUNTER 2019-06-27 15:29 | Outpatient (CLI) | payer MEDICARE ==
--- NOTE | 2019-06-27 16:00 | RAD ---
LEFT KNEE: 06/27/19 Four views. HISTORY: Knee pain. Joint spaces are preserved. Mild spurring from the medial condyles and tibial spines. Minimal spurrin g from the patella. No fracture or acute osseous abnormality. No joint effusion. IMPRESSION: Mild degenerative change. POS: OFF
--- NOTE | 2019-06-27 16:01 | RAD ---
LEFT HIP 06/27/19 INDICATIONS: Hip pain. Injury. There are mild degenerative changes of the hip with spurring from the femoral head. No evidence of ac poncho fracture identified. IMPRESSION: Degenerative changes left hip. No acute fracture identified. POS: OFF
== END 2019-06-27 15:30 | disposition home or self-care (01) ==
LOC: BICRAD 15:29
PROVIDERS: ATTEND Specialist
DX: M79.605 Pain in left leg (principal); M16.12 Unilateral primary osteoarthritis, left hip; M17.12 Unilateral primary osteoarthritis, left knee

== ENCOUNTER 2019-08-16 09:39 | Outpatient (CLI) | payer MEDICARE ==
--- NOTE | 2019-08-16 10:55 | RAD ---
6 views lumbar spine: 08/16/2019 COMPARISON: 06/11/2019 HISTORY: Low back pain, left lower extremity radiculopathy FINDINGS: Lumbar pedicles appear intact on the frontal imaging. There is multilevel lateral osteophyt e formation within the lumbar spine, most prominent on the left at L2-3 and L3-4. No obvious pars defect is identified at any level on the oblique views. Neutral lateral exam demonstrates new retrolisthesis at L3-4 measuring 6 mm. Multilevel facet hypertrophy within the lumbar spine including L3-4, L4-5, and L5-S1. Disc space narr owing with anterior osteophyte formation noted at L3-4. On the flexion imaging the retrolisthesis at L3-4 decreased to 4 mm and on extension increases to 7 m m. No acute osseous abnormality. There is atherosclerotic calcification of the abdominal aorta. IMPRESSION: Degenerative change within the lumbar spine as detailed above. New retrolisthesis at L3-4 , most prominent with extension.
== END 2019-08-16 09:40 | disposition home or self-care (01) ==
LOC: BICRAD 09:39
PROVIDERS: ATTEND Specialist
DX: M54.5 Low back pain (principal); M47.816 Spondylosis without myelopathy or radiculopathy, lumbar region; M43.16 Spondylolisthesis, lumbar region
CPT/HCPCS: 72100

== ENCOUNTER 2021-01-21 13:37 | Inpatient (IN) | payer MEDICARE ==
[~2021-01-21 13:37] MED LIST: Iopamidol-370 76% 500 ML 1 ML ONE
[2021-01-21 15:14] LABS: #Lymphocytes 1.9 thou/uL (1.20-3.40); #Monocytes 0.8 thou/uL (0.11-0.59); #Neutrophils 10.3 thou/uL (1.40-6.50); %Basophils 0.1 % (0.0-1.0); %Eosinophils 0.3 % (0.0-10.0); %Lymphocytes 14.6 % (21.0-51.0); %Monocytes 6.2 % (0.0-10.0); %Neutrophils 78.7 % (42.0-75.0); Mean Corpuscular HGB CONC 32.7 g/dL (32.0-36.0); Mean Corpuscular Hemoglobin 31.1 pg (27.0-31.0); Mean Corpuscular Volume 95.1 fL (78.0-98.0); Mean Platelet Volume 7.8 fL (7.4-10.4); Platelet Count 370 thou/uL (130-400); RBC Distribution Width 12.2 % (11.5-14.5); Red Blood Cell (RBC) Count 3.86 mill/uL (4.20-5.40); White Blood Cell (WBC) Count 13.1 thou/uL (4.8-10.8)
[2021-01-21 15:38] LABS: ALT (SGPT) Less than 7 U/L (8-55); AST (SGOT) 12 U/L (5-34); Albumin 3.6 g/dL (3.4-4.8); Alkaline Phosphatase 112 U/L (40-110); Anion Gap 17 mmol/L (10-20); BUN (Urea Nitrogen) 18 mg/dL (9.8-20.1); Bilirubin, Total 0.9 mg/dL (0.2-1.2); Calc. Creatinine Clearance 0 mL/min (70-130); Calcium 9.2 mg/dL (7.8-10.44); Carbon Dioxide 25 mmol/L (23-31); Chloride 94 mmol/L (98-107); Glucose 171 mg/dL (83-110); Lipase 28 U/L (8-78); Potassium 4.2 mmol/L (3.5-5.1); Protein, Total 7.6 g/dL (5.8-8.1); Sodium 132 mmol/L (136-145)
[2021-01-21] MEDS ORDERED: metroNIDAZOLE 500 MG/100 ML BAG ONE (16:55)
[2021-01-21] MEDS ORDERED: Ondansetron PF 4 MG/2 ML Vial ONE (18:12)
[2021-01-21 19:51] LABS: Bacteria/HPF 1+ HPF (None Seen); Bilirubin Negative (Negative); Blood, Urine Negative (Negative); Clarity Clear (Clear); Glucose, Urine (Dipstick) Normal (Negative); Ketone, Urine Negative (Negative); Leukocyte Negative Leu/uL (Negative); Nitrite Negative (Negative); Protein, Urine (Dipstick) 30 mg/dL (Neg-Trace); RBC/HPF 0-3 HPF (0-3); Specific Gravity, Urine 1.031 (1.002-1.036); Squamous Epithelial 0-3 HPF (0-3); WBC/HPF 0-3 HPF (0-3)
[2021-01-21] MEDS ORDERED: Sodium Chloride 0.9% 1,000 ML IV SCH (22:15)
[2021-01-21] MEDS ORDERED: Ondansetron ODT 4 MG TAB SL PRN (22:15)
[2021-01-21] MEDS ORDERED: Ondansetron PF 4 MG/2 ML Vial IVP PRN (22:15)
[2021-01-21 22:29] VITALS: BMI 22.2
[2021-01-22] MEDS ORDERED: metroNIDAZOLE 500 MG in Premix Bag 1 BAG IVPB SCH (01:00)
[2021-01-22 05:04] LABS: SARS-CoV-2 PCR by NAA Not Detected (NotDetected)
[2021-01-22] MEDS ORDERED: Albuterol 200 PUFF (6.7GM INHALER) INH PRN (08:34)
[2021-01-22] MEDS ORDERED: Acetaminophen 325 MG TAB PO PRN (08:37)
[2021-01-22] MEDS ORDERED: Dextrose 5% in Water 1,000 ML IV PRN (08:45)
[2021-01-22] MEDS ORDERED: Insulin Regular 300 UNITS/3 ML VIAL SC PRN (08:45)
[2021-01-22] MEDS ORDERED: Dextrose 50% Abboject 50 ML SYRINGE IVP PRN (08:45)
[2021-01-22] MEDS: metroNIDAZOLE 500 MG in Premix Bag 1 BAG IVPB SCH ×2 (09:23→16:04)
[2021-01-22] MEDS: Aspirin Chewable 81 MG TAB PO SCH (09:24)
[2021-01-22] MEDS: Pioglitazone HCl 15 MG TAB PO SCH ×2 (09:24→11:41)
[2021-01-22] MEDS: Sodium Chloride 0.9% 1,000 ML IV SCH ×2 (09:24→20:30)
[2021-01-22] MEDS: Bupropion 150 MG XL TAB PO SCH (09:24)
[2021-01-22] MEDS: Carvedilol 6.25 MG TAB PO SCH ×2 (09:24→20:28)
[2021-01-22] MEDS: Enoxaparin Sodium 30 MG/0.3 ML SYRINGE SC SCH (09:25)
[2021-01-22] MEDS: Atorvastatin Calcium 10 MG TAB PO SCH (20:25)
[2021-01-22] MEDS: Terazosin HCl 1 MG CAP PO SCH (20:28)
[2021-01-23] MEDS: metroNIDAZOLE 500 MG in Premix Bag 1 BAG IVPB SCH ×3 (00:14→16:43)
[2021-01-23 06:25] LABS: #Lymphocytes 1.7 thou/uL (1.20-3.40); #Neutrophils 7.6 thou/uL (1.40-6.50); %Basophils 0.1 % (0.0-1.0); %Eosinophils 0.1 % (0.0-10.0); %Lymphocytes 16.8 % (21.0-51.0); %Monocytes 9.5 % (0.0-10.0); %Neutrophils 73.5 % (42.0-75.0); Mean Corpuscular HGB CONC 32.6 g/dL (32.0-36.0); Mean Corpuscular Hemoglobin 31.2 pg (27.0-31.0); Mean Corpuscular Volume 95.8 fL (78.0-98.0); Mean Platelet Volume 7.9 fL (7.4-10.4); Platelet Count 307 thou/uL (130-400); RBC Distribution Width 12.1 % (11.5-14.5); Red Blood Cell (RBC) Count 3.19 mill/uL (4.20-5.40); White Blood Cell (WBC) Count 10.3 thou/uL (4.8-10.8)
[2021-01-23 06:30] LABS: Hemoglobin A1c 6.2 % (4.0-6.0)
[2021-01-23 06:48] LABS: Anion Gap 12 mmol/L (10-20); BUN (Urea Nitrogen) 11 mg/dL (9.8-20.1); Calc. Creatinine Clearance 46 mL/min (70-130); Calcium 8.4 mg/dL (7.8-10.44); Carbon Dioxide 23 mmol/L (23-31); Cardiac Risk 3.9 (Less than 4.5); Chloride 105 mmol/L (98-107); Cholesterol 97 mg/dl (< 200 Desired); Glucose 83 mg/dL (83-110); HDL Cholesterol 25 mg/dL (>60 Neg Risk); LDL Cholesterol, Calculated 54 mg/dL; Potassium 3.8 mmol/L (3.5-5.1); Sodium 136 mmol/L (136-145); Triglycerides 90 mg/dL (Less than 150)
[2021-01-23] MEDS: Sodium Chloride 0.9% 1,000 ML IV SCH ×2 (07:49→18:07)
[2021-01-23] MEDS: Enoxaparin Sodium 30 MG/0.3 ML SYRINGE SC SCH (07:51)
[2021-01-23] MEDS: Pioglitazone HCl 15 MG TAB PO SCH (07:52)
[2021-01-23] MEDS: Aspirin Chewable 81 MG TAB PO SCH (07:52)
[2021-01-23] MEDS: Carvedilol 6.25 MG TAB PO SCH ×2 (07:52→20:33)
[2021-01-23] MEDS: Bupropion 150 MG XL TAB PO SCH (07:52)
[2021-01-23] MEDS: Mometasone 200 MCG/Formoterol 5 MCG 120 PUFF INHALER INH SCH (18:34)
[2021-01-23] MEDS: Docusate 100 MG CAP PO SCH (20:33)
[2021-01-23] MEDS: Atorvastatin Calcium 10 MG TAB PO SCH (20:33)
[2021-01-23] MEDS: Terazosin HCl 1 MG CAP PO SCH (20:34)
[2021-01-24] MEDS: metroNIDAZOLE 500 MG in Premix Bag 1 BAG IVPB SCH ×2 (00:10→07:47)
[2021-01-24] MEDS: Mometasone 200 MCG/Formoterol 5 MCG 120 PUFF INHALER INH SCH ×2 (06:55→19:09)
[2021-01-24 07:06] LABS: #Lymphocytes 1.9 thou/uL (1.20-3.40); #Neutrophils 7.6 thou/uL (1.40-6.50); %Basophils 0.1 % (0.0-1.0); %Eosinophils 0.5 % (0.0-10.0); %Monocytes 9.3 % (0.0-10.0); %Neutrophils 72.2 % (42.0-75.0); Hemoglobin 9.8 g/dL (12.0-16.0); Mean Corpuscular Hemoglobin 31.6 pg (27.0-31.0); Mean Corpuscular Volume 95.8 fL (78.0-98.0); Mean Platelet Volume 7.7 fL (7.4-10.4); Platelet Count 303 thou/uL (130-400); RBC Distribution Width 12.2 % (11.5-14.5); White Blood Cell (WBC) Count 10.5 thou/uL (4.8-10.8)
[2021-01-24 07:22] LABS: Anion Gap 12 mmol/L (10-20); BUN (Urea Nitrogen) 9 mg/dL (9.8-20.1); Calc. Creatinine Clearance 51 mL/min (70-130); Calcium 8.3 mg/dL (7.8-10.44); Carbon Dioxide 22 mmol/L (23-31); Chloride 106 mmol/L (98-107); Glucose 78 mg/dL (83-110); Potassium 3.5 mmol/L (3.5-5.1); Sodium 136 mmol/L (136-145)
[2021-01-24] MEDS: Sodium Chloride 0.9% 1,000 ML IV SCH (07:46)
[2021-01-24] MEDS: Enoxaparin Sodium 30 MG/0.3 ML SYRINGE SC SCH (07:47)
[2021-01-24] MEDS: Aspirin Chewable 81 MG TAB PO SCH (07:48)
[2021-01-24] MEDS: Pioglitazone HCl 15 MG TAB PO SCH (07:48)
[2021-01-24] MEDS: Bupropion 150 MG XL TAB PO SCH (07:49)
[2021-01-24] MEDS: Carvedilol 6.25 MG TAB PO SCH (07:49)
[2021-01-24] MEDS: Docusate 100 MG CAP PO SCH ×2 (07:49→20:40)
[2021-01-24] MEDS: metroNIDAZOLE 500 MG TAB PO SCH ×2 (15:36→20:40)
[2021-01-24] MEDS: Carvedilol 25 MG TAB PO SCH (20:40)
[2021-01-24] MEDS: Atorvastatin Calcium 10 MG TAB PO SCH (20:40)
[2021-01-24] MEDS ORDERED: Terazosin HCl 5 MG CAP PO SCH (21:00)
[2021-01-25 06:04] LABS: #Lymphocytes 2.1 thou/uL (1.20-3.40); #Monocytes 1.1 thou/uL (0.11-0.59); #Neutrophils 8.2 thou/uL (1.40-6.50); %Basophils 0.2 % (0.0-1.0); %Eosinophils 0.3 % (0.0-10.0); %Lymphocytes 18.2 % (21.0-51.0); %Monocytes 9.4 % (0.0-10.0); %Neutrophils 71.9 % (42.0-75.0); Hemoglobin 9.7 g/dL (12.0-16.0); Mean Corpuscular HGB CONC 33.4 g/dL (32.0-36.0); Mean Corpuscular Volume 95.8 fL (78.0-98.0); Mean Platelet Volume 7.7 fL (7.4-10.4); Platelet Count 298 thou/uL (130-400); RBC Distribution Width 12.1 % (11.5-14.5); Red Blood Cell (RBC) Count 3.03 mill/uL (4.20-5.40); White Blood Cell (WBC) Count 11.4 thou/uL (4.8-10.8)
[2021-01-25 06:24] LABS: Iron 46 ug/dL (50-170); Iron Binding Capacity, Total 178 mcg/dL (265-497)
[2021-01-25] MEDS: Enoxaparin Sodium 30 MG/0.3 ML SYRINGE SC SCH (07:45)
[2021-01-25] MEDS: Pioglitazone HCl 15 MG TAB PO SCH (07:45)
[2021-01-25] MEDS: Carvedilol 25 MG TAB PO SCH (07:46)
[2021-01-25] MEDS: Docusate 100 MG CAP PO SCH (07:46)
[2021-01-25] MEDS: Aspirin Chewable 81 MG TAB PO SCH (07:46)
[2021-01-25] MEDS: Bupropion 150 MG XL TAB PO SCH (07:46)
[2021-01-25] MEDS: metroNIDAZOLE 500 MG TAB PO SCH (07:48)
[2021-01-25] MEDS: Mometasone 200 MCG/Formoterol 5 MCG 120 PUFF INHALER INH SCH (08:36)
[2021-01-25 10:44] VITALS: BP 110/55; TEMP 98
== END 2021-01-25 13:29 | disposition home or self-care (01) | DRG 392 ==
LOC: ERS 13:37 → T4-B 17:19
PROVIDERS: ADMIT Specialist; ATTEND Specialist
DX: K57.20 Diverticulitis of large intestine with perforation and abscess without bleeding (principal); E87.1 Hypo-osmolality and hyponatremia; N17.9 Acute kidney failure, unspecified; K92.2 Gastrointestinal hemorrhage, unspecified; E78.5 Hyperlipidemia, unspecified; K21.9 Gastro-esophageal reflux disease without esophagitis; J44.9 Chronic obstructive pulmonary disease, unspecified; F41.9 Anxiety disorder, unspecified; F32.9 Major depressive disorder, single episode, unspecified; Z95.1 Presence of aortocoronary bypass graft; Z90.49 Acquired absence of other specified parts of digestive tract; F17.210 Nicotine dependence, cigarettes, uncomplicated; Z88.6 Allergy status to analgesic agent; I25.10 Atherosclerotic heart disease of native coronary artery without angina pectoris; N18.30 Chronic kidney disease, stage 3 unspecified; I12.9 Hypertensive chronic kidney disease with stage 1 through stage 4 chronic kidney disease, or unspecified chronic kidney disease; E11.22 Type 2 diabetes mellitus with diabetic chronic kidney disease; D64.9 Anemia, unspecified
CPT/HCPCS: 36415; 36416; 74177; 80048; 80053; 80061; 81003; 81015; 82274; 83036; 83540; 83550; 83690; 85025; 87635; 96365; 96367; J1650; J1956; J2405; Q9967; U0003; U0005

== ENCOUNTER 2021-02-03 10:19 | Inpatient (IN) | payer MEDICARE ==
[2021-02-03 11:14] LABS: #Lymphocytes 1.8 thou/uL (1.20-3.40); #Monocytes 1.3 thou/uL (0.11-0.59); #Neutrophils 16.6 thou/uL (1.40-6.50); %Basophils 0.1 % (0.0-1.0); %Eosinophils 0.1 % (0.0-10.0); %Monocytes 6.7 % (0.0-10.0); %Neutrophils 84.1 % (42.0-75.0); Hemoglobin 11.3 g/dL (12.0-16.0); Mean Corpuscular HGB CONC 32.3 g/dL (32.0-36.0); Mean Corpuscular Hemoglobin 30.7 pg (27.0-31.0); Mean Corpuscular Volume 95.1 fL (78.0-98.0); Mean Platelet Volume 7.4 fL (7.4-10.4); Platelet Count 400 thou/uL (130-400); RBC Distribution Width 12.7 % (11.5-14.5); Red Blood Cell (RBC) Count 3.69 mill/uL (4.20-5.40); White Blood Cell (WBC) Count 19.8 thou/uL (4.8-10.8)
[2021-02-03 11:31] LABS: ALT (SGPT) Less than 7 U/L (8-55); AST (SGOT) 14 U/L (5-34); Albumin 2.9 g/dL (3.4-4.8); Alkaline Phosphatase 70 U/L (40-110); Anion Gap 15 mmol/L (10-20); BUN (Urea Nitrogen) 24 mg/dL (9.8-20.1); Bilirubin, Total 0.5 mg/dL (0.2-1.2); Calc. Creatinine Clearance 0 mL/min (70-130); Calcium 8.8 mg/dL (7.8-10.44); Carbon Dioxide 27 mmol/L (23-31); Chloride 97 mmol/L (98-107); Globulin 3.4 g/dL (2.4-3.5); Glucose 140 mg/dL (83-110); Potassium 4.1 mmol/L (3.5-5.1); Protein, Total 6.3 g/dL (5.8-8.1); Sodium 135 mmol/L (136-145)
[2021-02-03 16:17] LABS: Bilirubin Negative (Negative); Blood, Urine Negative (Negative); Clarity Clear (Clear); Glucose, Urine (Dipstick) Normal (Negative); Ketone, Urine 10 mg/dL (Negative); Leukocyte 75 Leu/uL (Negative); Nitrite Negative (Negative); Protein, Urine (Dipstick) 70 mg/dL (Neg-Trace); RBC/HPF 0-3 HPF (0-3); Squamous Epithelial 0-3 HPF (0-3); pH, Urine 5.5 (5.0-9.0)
[2021-02-03 16:18] LABS: Bacteria/HPF 1+ HPF (None Seen)
[2021-02-03] MEDS ORDERED: cefTRIAXone\\ROCEPHIN 1 GM VIAL ONE (17:08)
[2021-02-03] MEDS ORDERED: Acetaminophen 325 MG TAB PO PRN (20:00)
[2021-02-03] MEDS ORDERED: Ondansetron ODT 4 MG TAB SL PRN (20:00)
[2021-02-03] MEDS ORDERED: Ondansetron PF 4 MG/2 ML Vial IVP PRN (20:00)
[2021-02-03] MEDS ORDERED: Sodium Chloride 0.9% 1,000 ML IV SCH (20:00)
[2021-02-03 22:34] LABS: Troponin I 0.027 ng/mL (< 0.028)
[2021-02-04] MEDS ORDERED: Acetaminophen 325 MG TAB PO PRN ×2 (08:36→11:04)
[2021-02-04] MEDS: metroNIDAZOLE 500 MG TAB PO SCH ×3 (09:06→20:17)
[2021-02-04] MEDS: Carvedilol 25 MG TAB PO SCH ×2 (09:06→20:17)
[2021-02-04] MEDS ORDERED: Iopamidol 370 76% 100 ML VIAL ONE (10:10)
[2021-02-04] MEDS ORDERED: Dextrose 5% in Water 1,000 ML IV PRN (11:15)
[2021-02-04] MEDS ORDERED: Insulin Regular 300 UNITS/3 ML VIAL SC PRN (11:15)
[2021-02-04] MEDS ORDERED: Ondansetron PF 4 MG/2 ML Vial IVP SCH (11:15)
[2021-02-04] MEDS ORDERED: Dextrose 50% Abboject 50 ML SYRINGE IVP PRN (11:15)
[2021-02-04] MEDS: Sodium Chloride 0.45% 1,000 ML IV SCH ×2 (12:09→20:36)
[2021-02-04 12:54] LABS: SARS-CoV-2 PCR by NAA Not Detected (NotDetected)
[2021-02-04] MEDS: Ondansetron PF 4 MG/2 ML Vial IVP SCH (16:19)
[2021-02-04] MEDS: Terazosin HCl 5 MG CAP PO SCH (20:17)
[2021-02-04] MEDS: Rosuvastatin 10 MG TAB PO SCH (20:17)
[2021-02-05 04:18] LABS: #Basophils 0.1 thou/uL (0.0-0.2); #Lymphocytes 1.6 thou/uL (1.20-3.40); #Monocytes 0.9 thou/uL (0.11-0.59); #Neutrophils 13.5 thou/uL (1.40-6.50); %Basophils 0.3 % (0.0-1.0); %Eosinophils 0.3 % (0.0-10.0); %Lymphocytes 9.8 % (21.0-51.0); %Monocytes 5.5 % (0.0-10.0); %Neutrophils 84.2 % (42.0-75.0); Hemoglobin 9.7 g/dL (12.0-16.0); Mean Corpuscular Hemoglobin 30.2 pg (27.0-31.0); Mean Corpuscular Volume 97.4 fL (78.0-98.0); Mean Platelet Volume 7.5 fL (7.4-10.4); Platelet Count 321 thou/uL (130-400); RBC Distribution Width 12.6 % (11.5-14.5); White Blood Cell (WBC) Count 16.1 thou/uL (4.8-10.8)
[2021-02-05 04:37] LABS: Anion Gap 14 mmol/L (10-20); BUN (Urea Nitrogen) 13 mg/dL (9.8-20.1); Calc. Creatinine Clearance 51 mL/min (70-130); Calcium 7.9 mg/dL (7.8-10.44); Carbon Dioxide 21 mmol/L (23-31); Chloride 101 mmol/L (98-107); Glucose 85 mg/dL (83-110); Potassium 3.3 mmol/L (3.5-5.1); Sodium 133 mmol/L (136-145)
[2021-02-05] MEDS: Ondansetron PF 4 MG/2 ML Vial IVP SCH ×3 (06:59→16:01)
[2021-02-05] MEDS: Carvedilol 25 MG TAB PO SCH ×2 (08:01→20:09)
[2021-02-05] MEDS: metroNIDAZOLE 500 MG TAB PO SCH ×3 (08:02→20:08)
[2021-02-05] MEDS: metFORMIN 500 MG TAB PO SCH (08:03)
[2021-02-05] MEDS: Sodium Chloride 0.45% 1,000 ML IV SCH (09:27)
[2021-02-05] MEDS: 1/2 NS w/KCL 20 mEq 1,000 ML IV SCH ×2 (12:10→20:40)
[2021-02-05] MEDS ORDERED: Sodium Chloride 0.9% 500 ML IV SCH (12:30)
[2021-02-05] MEDS: Rosuvastatin 10 MG TAB PO SCH (20:08)
[2021-02-05] MEDS: Terazosin HCl 5 MG CAP PO SCH (20:08)
[2021-02-06] MEDS: Piperacillin/Tazobactam 4.5 GM in Sodium Chloride 0.9% 100 ML IVPB SCH ×5 (01:21→23:47)
[2021-02-06 05:04] LABS: #Lymphocytes 1.7 thou/uL (1.20-3.40); #Neutrophils 11.3 thou/uL (1.40-6.50); %Basophils 0.1 % (0.0-1.0); %Eosinophils 0.3 % (0.0-10.0); %Lymphocytes 12.3 % (21.0-51.0); %Monocytes 7.1 % (0.0-10.0); %Neutrophils 80.3 % (42.0-75.0); Hemoglobin 9.1 g/dL (12.0-16.0); Mean Corpuscular HGB CONC 32.1 g/dL (32.0-36.0); Mean Corpuscular Hemoglobin 30.7 pg (27.0-31.0); Mean Corpuscular Volume 95.6 fL (78.0-98.0); Mean Platelet Volume 7.6 fL (7.4-10.4); Platelet Count 308 thou/uL (130-400); RBC Distribution Width 12.6 % (11.5-14.5); Red Blood Cell (RBC) Count 2.95 mill/uL (4.20-5.40); White Blood Cell (WBC) Count 14.1 thou/uL (4.8-10.8)
[2021-02-06 05:30] LABS: Anion Gap 12 mmol/L (10-20); BUN (Urea Nitrogen) 10 mg/dL (9.8-20.1); Calc. Creatinine Clearance 51 mL/min (70-130); Calcium 7.9 mg/dL (7.8-10.44); Carbon Dioxide 21 mmol/L (23-31); Chloride 104 mmol/L (98-107); Glucose 84 mg/dL (83-110); Potassium 3.7 mmol/L (3.5-5.1); Sodium 133 mmol/L (136-145)
[2021-02-06] MEDS: Ondansetron PF 4 MG/2 ML Vial IVP SCH ×3 (09:03→17:46)
[2021-02-06] MEDS: Carvedilol 25 MG TAB PO SCH ×2 (09:04→21:04)
[2021-02-06] MEDS: 1/2 NS w/KCL 20 mEq 1,000 ML IV SCH ×2 (09:04→21:02)
[2021-02-06] MEDS: Enoxaparin Sodium 30 MG/0.3 ML SYRINGE SC SCH (09:04)
[2021-02-06] MEDS: metFORMIN 500 MG TAB PO SCH (09:04)
[2021-02-06] MEDS: Terazosin HCl 5 MG CAP PO SCH (21:04)
[2021-02-06] MEDS: Rosuvastatin 10 MG TAB PO SCH (21:04)
[2021-02-07 04:40] LABS: #Eosinphils 0.1 thou/uL (0.0-0.7); #Lymphocytes 1.4 thou/uL (1.20-3.40); #Monocytes 0.9 thou/uL (0.11-0.59); #Neutrophils 7.9 thou/uL (1.40-6.50); %Basophils 0.1 % (0.0-1.0); %Eosinophils 0.8 % (0.0-10.0); %Lymphocytes 13.4 % (21.0-51.0); %Monocytes 8.9 % (0.0-10.0); %Neutrophils 76.8 % (42.0-75.0); Mean Corpuscular HGB CONC 31.1 g/dL (32.0-36.0); Mean Corpuscular Hemoglobin 29.7 pg (27.0-31.0); Mean Corpuscular Volume 95.5 fL (78.0-98.0); Mean Platelet Volume 7.8 fL (7.4-10.4); Platelet Count 301 thou/uL (130-400); RBC Distribution Width 12.7 % (11.5-14.5); Red Blood Cell (RBC) Count 3.03 mill/uL (4.20-5.40); White Blood Cell (WBC) Count 10.3 thou/uL (4.8-10.8)
[2021-02-07 05:06] LABS: Anion Gap 11 mmol/L (10-20); BUN (Urea Nitrogen) 7 mg/dL (9.8-20.1); Calc. Creatinine Clearance 51 mL/min (70-130); Calcium 7.6 mg/dL (7.8-10.44); Carbon Dioxide 20 mmol/L (23-31); Chloride 108 mmol/L (98-107); Glucose 93 mg/dL (83-110); Potassium 3.5 mmol/L (3.5-5.1); Sodium 135 mmol/L (136-145)
[2021-02-07] MEDS: Piperacillin/Tazobactam 4.5 GM in Sodium Chloride 0.9% 100 ML IVPB SCH ×4 (06:03→23:37)
[2021-02-07] MEDS: 1/2 NS w/KCL 20 mEq 1,000 ML IV SCH ×3 (06:05→23:37)
[2021-02-07] MEDS: Ondansetron PF 4 MG/2 ML Vial IVP SCH ×3 (08:19→18:14)
[2021-02-07] MEDS: Enoxaparin Sodium 30 MG/0.3 ML SYRINGE SC SCH (08:20)
[2021-02-07] MEDS: metFORMIN 500 MG TAB PO SCH (08:20)
[2021-02-07] MEDS: Carvedilol 25 MG TAB PO SCH ×2 (08:20→22:07)
[2021-02-07] MEDS: Terazosin HCl 5 MG CAP PO SCH (22:07)
[2021-02-07] MEDS: Rosuvastatin 10 MG TAB PO SCH (22:07)
[2021-02-08 04:55] LABS: #Eosinphils 0.1 thou/uL (0.0-0.7); #Lymphocytes 1.5 thou/uL (1.20-3.40); %Basophils 0.1 % (0.0-1.0); %Lymphocytes 15.4 % (21.0-51.0); %Monocytes 10.1 % (0.0-10.0); %Neutrophils 73.4 % (42.0-75.0); Hemoglobin 9.1 g/dL (12.0-16.0); Mean Corpuscular HGB CONC 31.9 g/dL (32.0-36.0); Mean Corpuscular Hemoglobin 30.4 pg (27.0-31.0); Mean Corpuscular Volume 95.3 fL (78.0-98.0); Mean Platelet Volume 8.1 fL (7.4-10.4); Platelet Count 276 thou/uL (130-400); RBC Distribution Width 12.8 % (11.5-14.5); White Blood Cell (WBC) Count 9.6 thou/uL (4.8-10.8)
[2021-02-08 05:15] LABS: ALT (SGPT) Less than 7 U/L (8-55); AST (SGOT) 11 U/L (5-34); Albumin 2.1 g/dL (3.4-4.8); Alkaline Phosphatase 49 U/L (40-110); Anion Gap 10 mmol/L (10-20); BUN (Urea Nitrogen) 5 mg/dL (9.8-20.1); Bilirubin, Total 0.2 mg/dL (0.2-1.2); Calc. Creatinine Clearance 50 mL/min (70-130); Calcium 7.6 mg/dL (7.8-10.44); Carbon Dioxide 20 mmol/L (23-31); Chloride 110 mmol/L (98-107); Globulin 2.4 g/dL (2.4-3.5); Glucose 108 mg/dL (83-110); Magnesium 1.3 mg/dL (1.6-2.6); Potassium 3.6 mmol/L (3.5-5.1); Protein, Total 4.5 g/dL (5.8-8.1); Sodium 136 mmol/L (136-145)
[2021-02-08] MEDS: Piperacillin/Tazobactam 4.5 GM in Sodium Chloride 0.9% 100 ML IVPB SCH ×2 (05:16→11:00)
[2021-02-08] MEDS: Ondansetron PF 4 MG/2 ML Vial IVP SCH ×2 (07:48→10:58)
[2021-02-08] MEDS: Carvedilol 25 MG TAB PO SCH ×2 (09:02→19:53)
[2021-02-08] MEDS: metFORMIN 500 MG TAB PO SCH (09:02)
[2021-02-08] MEDS: Enoxaparin Sodium 30 MG/0.3 ML SYRINGE SC SCH (09:02)
[2021-02-08] MEDS: 1/2 NS w/KCL 20 mEq 1,000 ML IV SCH (10:58)
[2021-02-08] MEDS: Amoxicillin/Potassium Clav 500 MG TAB PO SCH ×2 (15:11→19:53)
[2021-02-08] MEDS: Rosuvastatin 10 MG TAB PO SCH (19:53)
[2021-02-08] MEDS: Terazosin HCl 5 MG CAP PO SCH (19:53)
[2021-02-09 05:20] LABS: #Eosinphils 0.1 thou/uL (0.0-0.7); #Monocytes 1.3 thou/uL (0.11-0.59); #Neutrophils 8.3 thou/uL (1.40-6.50); %Basophils 0.1 % (0.0-1.0); %Eosinophils 0.9 % (0.0-10.0); %Lymphocytes 16.8 % (21.0-51.0); %Neutrophils 71.2 % (42.0-75.0); Mean Corpuscular HGB CONC 31.5 g/dL (32.0-36.0); Mean Corpuscular Hemoglobin 30.1 pg (27.0-31.0); Mean Corpuscular Volume 95.6 fL (78.0-98.0); Mean Platelet Volume 7.8 fL (7.4-10.4); Platelet Count 311 thou/uL (130-400); RBC Distribution Width 12.9 % (11.5-14.5); White Blood Cell (WBC) Count 11.6 thou/uL (4.8-10.8)
[2021-02-09 05:45] LABS: Anion Gap 9 mmol/L (10-20); BUN (Urea Nitrogen) 5 mg/dL (9.8-20.1); Calc. Creatinine Clearance 52 mL/min (70-130); Calcium 7.7 mg/dL (7.8-10.44); Carbon Dioxide 22 mmol/L (23-31); Chloride 110 mmol/L (98-107); Glucose 88 mg/dL (83-110); Potassium 3.9 mmol/L (3.5-5.1); Sodium 137 mmol/L (136-145)
[2021-02-09] MEDS: Carvedilol 25 MG TAB PO SCH ×2 (09:18→19:53)
[2021-02-09] MEDS: Enoxaparin Sodium 30 MG/0.3 ML SYRINGE SC SCH (09:18)
[2021-02-09] MEDS: metFORMIN 500 MG TAB PO SCH (09:18)
[2021-02-09] MEDS: Amoxicillin/Potassium Clav 500 MG TAB PO SCH ×3 (09:18→18:49)
[2021-02-09 09:54] VITALS: BMI 23.1
[2021-02-09] MEDS: Rosuvastatin 10 MG TAB PO SCH (19:53)
[2021-02-09] MEDS: Terazosin HCl 5 MG CAP PO SCH (19:53)
[2021-02-10 06:58] LABS: #Eosinphils 0.1 thou/uL (0.0-0.7); #Lymphocytes 1.9 thou/uL (1.20-3.40); #Monocytes 1.4 thou/uL (0.11-0.59); #Neutrophils 9.5 thou/uL (1.40-6.50); %Basophils 0.1 % (0.0-1.0); %Lymphocytes 14.5 % (21.0-51.0); %Monocytes 10.9 % (0.0-10.0); %Neutrophils 73.6 % (42.0-75.0); Hemoglobin 9.6 g/dL (12.0-16.0); Mean Corpuscular HGB CONC 31.7 g/dL (32.0-36.0); Mean Corpuscular Hemoglobin 30.3 pg (27.0-31.0); Mean Corpuscular Volume 95.6 fL (78.0-98.0); Platelet Count 324 thou/uL (130-400); RBC Distribution Width 12.8 % (11.5-14.5); Red Blood Cell (RBC) Count 3.17 mill/uL (4.20-5.40); White Blood Cell (WBC) Count 12.9 thou/uL (4.8-10.8)
[2021-02-10 07:16] LABS: Anion Gap 12 mmol/L (10-20); BUN (Urea Nitrogen) 6 mg/dL (9.8-20.1); Calc. Creatinine Clearance 55 mL/min (70-130); Calcium 7.9 mg/dL (7.8-10.44); Carbon Dioxide 21 mmol/L (23-31); Chloride 108 mmol/L (98-107); Glucose 88 mg/dL (83-110); Potassium 3.6 mmol/L (3.5-5.1); Sodium 137 mmol/L (136-145)
[2021-02-10 08:23] VITALS: BP 129/58; TEMP 98.9
[2021-02-10] MEDS: Enoxaparin Sodium 30 MG/0.3 ML SYRINGE SC SCH (08:27)
[2021-02-10] MEDS: metFORMIN 500 MG TAB PO SCH (08:28)
[2021-02-10] MEDS: Carvedilol 25 MG TAB PO SCH (08:28)
[2021-02-10] MEDS: Amoxicillin/Potassium Clav 500 MG TAB PO SCH (08:28)
== END 2021-02-10 10:36 | disposition home or self-care (01) | DRG 690 ==
LOC: ERS 10:19 → INTOOBSV 17:31 → 2NO 17:31 → OBSVTOIN 17:31 → T4-A 02-09 11:23
PROVIDERS: ADMIT Specialist; ATTEND Specialist
DX: N39.0 Urinary tract infection, site not specified (principal); K57.20 Diverticulitis of large intestine with perforation and abscess without bleeding; E86.0 Dehydration; Z20.822 Contact with and (suspected) exposure to COVID-19; E78.5 Hyperlipidemia, unspecified; E78.00 Pure hypercholesterolemia, unspecified; F17.210 Nicotine dependence, cigarettes, uncomplicated; D72.829 Elevated white blood cell count, unspecified; K21.9 Gastro-esophageal reflux disease without esophagitis; I25.10 Atherosclerotic heart disease of native coronary artery without angina pectoris; N18.9 Chronic kidney disease, unspecified; J43.9 Emphysema, unspecified; Z88.8 Allergy status to other drugs, medicaments and biological substances; Z95.1 Presence of aortocoronary bypass graft; Z79.84 Long term (current) use of oral hypoglycemic drugs; Z79.899 Other long term (current) drug therapy; Z91.14 Patient's other noncompliance with medication regimen; F41.9 Anxiety disorder, unspecified; Z90.710 Acquired absence of both cervix and uterus; I12.9 Hypertensive chronic kidney disease with stage 1 through stage 4 chronic kidney disease, or unspecified chronic kidney disease
CPT/HCPCS: 36415; 36416; 70450; 71045; 72125; 74177; 80048; 80053; 81001; 82533; 83605; 83735; 84443; 84484; 85025; 87040; 87045; 87046; 87086; 87324; 87427; 87449; 87635; 93005; 96365; G0378; J0696; J1650; J2543; J3480; J3490; Q9967; U0003; U0005

== ENCOUNTER 2021-03-07 19:09 | Inpatient (IN) | payer MEDICARE ==
[2021-03-07 19:52] LABS: #Eosinphils 0.1 thou/uL (0.0-0.7); #Lymphocytes 2.1 thou/uL (1.20-3.40); #Monocytes 0.6 thou/uL (0.11-0.59); #Neutrophils 9.4 thou/uL (1.40-6.50); %Basophils 0.2 % (0.0-1.0); %Eosinophils 0.4 % (0.0-10.0); %Lymphocytes 17.3 % (21.0-51.0); %Monocytes 4.9 % (0.0-10.0); %Neutrophils 77.1 % (42.0-75.0); Hemoglobin 10.9 g/dL (12.0-16.0); Mean Corpuscular HGB CONC 32.6 g/dL (32.0-36.0); Mean Corpuscular Hemoglobin 30.9 pg (27.0-31.0); Mean Corpuscular Volume 94.8 fL (78.0-98.0); Mean Platelet Volume 7.6 fL (7.4-10.4); Platelet Count 333 thou/uL (130-400); RBC Distribution Width 15.1 % (11.5-14.5); Red Blood Cell (RBC) Count 3.52 mill/uL (4.20-5.40); White Blood Cell (WBC) Count 12.2 thou/uL (4.8-10.8)
[2021-03-07 20:49] LABS: ALT (SGPT) Less than 7 U/L (8-55); AST (SGOT) 14 U/L (5-34); Albumin 2.7 g/dL (3.4-4.8); Alkaline Phosphatase 97 U/L (40-110); Anion Gap 15 mmol/L (10-20); BUN (Urea Nitrogen) 14 mg/dL (9.8-20.1); Bilirubin, Total 0.7 mg/dL (0.2-1.2); Calc. Creatinine Clearance 0 mL/min (70-130); Carbon Dioxide 29 mmol/L (23-31); Chloride 99 mmol/L (98-107); Globulin 3.3 g/dL (2.4-3.5); Glucose 247 mg/dL (83-110); Sodium 140 mmol/L (136-145)
[2021-03-07 20:54] LABS: Potassium 2.6 mmol/L (3.5-5.1)
[2021-03-07] MEDS ORDERED: NS 0.9% w/ 20 MEQ KCL 0 ML ONE (21:03)
[2021-03-07] MEDS ORDERED: D5 1/2 NS w/20 mEq KCL 0 ML ONE (21:04)
[2021-03-07] MEDS ORDERED: Potassium Chloride 20 MEQ TAB ONE (21:04)
[2021-03-07] MEDS ORDERED: NS 0.9% w/ 40 MEQ KCL 1,000 ML IV SCH (21:15)
[2021-03-07] MEDS ORDERED: Piperacillin/Tazobactam 4.5 GM VIAL ONE (21:54)
[2021-03-07] MEDS ORDERED: Ondansetron ODT 4 MG TAB SL PRN (23:15)
[2021-03-07] MEDS ORDERED: Acetaminophen 325 MG TAB PO PRN (23:15)
[2021-03-07] MEDS ORDERED: Ondansetron PF 4 MG/2 ML Vial IVP PRN (23:15)
[2021-03-07 23:18] VITALS: BMI 20.8
[2021-03-08 05:36] LABS: Anion Gap 9 mmol/L (10-20); BUN (Urea Nitrogen) 14 mg/dL (9.8-20.1); Calc. Creatinine Clearance 48 mL/min (70-130); Calcium 7.3 mg/dL (7.8-10.44); Carbon Dioxide 26 mmol/L (23-31); Chloride 108 mmol/L (98-107); Glucose 84 mg/dL (83-110); Potassium 3.3 mmol/L (3.5-5.1); Sodium 140 mmol/L (136-145)
[2021-03-08 09:32] LABS: SARS-CoV-2 NAA Rapid Test Not Detected (NotDetected)
[2021-03-08] MEDS ORDERED: Insulin Regular 300 UNITS/3 ML VIAL SC PRN (11:00)
[2021-03-08] MEDS ORDERED: Dextrose 5% in Water 1,000 ML IV PRN (11:00)
[2021-03-08] MEDS ORDERED: Dextrose 50% Abboject 50 ML SYRINGE IVP PRN (11:00)
[2021-03-08] MEDS: Carvedilol 3.125 MG TAB PO SCH (20:10)
[2021-03-08] MEDS: Rosuvastatin 10 MG TAB PO SCH (20:10)
[2021-03-08] MEDS: Potassium Chloride 20 MEQ TAB PO SCH (20:11)
[2021-03-09 05:25] LABS: #Basophils 0.1 thou/uL (0.0-0.2); #Eosinphils 0.2 thou/uL (0.0-0.7); #Monocytes 0.6 thou/uL (0.11-0.59); #Neutrophils 4.6 thou/uL (1.40-6.50); %Basophils 0.7 % (0.0-1.0); %Eosinophils 2.2 % (0.0-10.0); %Lymphocytes 35.7 % (21.0-51.0); %Monocytes 7.2 % (0.0-10.0); %Neutrophils 54.1 % (42.0-75.0); Hemoglobin 9.2 g/dL (12.0-16.0); Mean Corpuscular Hemoglobin 31.3 pg (27.0-31.0); Mean Corpuscular Volume 94.9 fL (78.0-98.0); Mean Platelet Volume 7.6 fL (7.4-10.4); Platelet Count 263 thou/uL (130-400); RBC Distribution Width 15.1 % (11.5-14.5); Red Blood Cell (RBC) Count 2.93 mill/uL (4.20-5.40); White Blood Cell (WBC) Count 8.4 thou/uL (4.8-10.8)
[2021-03-09 05:32] LABS: Hemoglobin A1c 5.8 % (4.0-6.0)
[2021-03-09 05:43] LABS: Anion Gap 11 mmol/L (10-20); BUN (Urea Nitrogen) 11 mg/dL (9.8-20.1); Calc. Creatinine Clearance 58 mL/min (70-130); Calcium 7.2 mg/dL (7.8-10.44); Carbon Dioxide 25 mmol/L (23-31); Chloride 107 mmol/L (98-107); Glucose 83 mg/dL (83-110); Potassium 3.3 mmol/L (3.5-5.1); Sodium 140 mmol/L (136-145)
[2021-03-09] MEDS: Carvedilol 3.125 MG TAB PO SCH (07:38)
[2021-03-09] MEDS: Pioglitazone HCl 15 MG TAB PO SCH (07:38)
[2021-03-09] MEDS: Potassium Chloride 20 MEQ TAB PO SCH ×2 (07:38→20:31)
[2021-03-09] MEDS ORDERED: Carvedilol 3.125 MG TAB PO SCH (08:00)
[2021-03-09] MEDS ORDERED: Pioglitazone HCl 15 MG TAB PO SCH (08:00)
[2021-03-09] MEDS: Carvedilol 6.25 MG TAB PO SCH ×2 (08:03→20:31)
[2021-03-09] MEDS: Enoxaparin Sodium 40 MG/0.4 ML SYRINGE SC SCH (08:04)
[2021-03-09] MEDS: hydrALAZINE 25 MG TAB PO SCH ×3 (08:05→20:30)
[2021-03-09] MEDS ORDERED: Iopamidol 370 76% 100 ML VIAL ONE (13:42)
[2021-03-09] MEDS: Rosuvastatin 10 MG TAB PO SCH (20:30)
[2021-03-10 05:26] LABS: #Eosinphils 0.1 thou/uL (0.0-0.7); #Lymphocytes 2.9 thou/uL (1.20-3.40); #Monocytes 0.6 thou/uL (0.11-0.59); #Neutrophils 4.9 thou/uL (1.40-6.50); %Basophils 0.2 % (0.0-1.0); %Eosinophils 1.5 % (0.0-10.0); %Lymphocytes 34.3 % (21.0-51.0); %Monocytes 7.1 % (0.0-10.0); %Neutrophils 56.9 % (42.0-75.0); Hemoglobin 9.9 g/dL (12.0-16.0); Mean Corpuscular HGB CONC 32.4 g/dL (32.0-36.0); Mean Corpuscular Hemoglobin 30.9 pg (27.0-31.0); Mean Corpuscular Volume 95.4 fL (78.0-98.0); Mean Platelet Volume 7.7 fL (7.4-10.4); Platelet Count 274 thou/uL (130-400); RBC Distribution Width 15.3 % (11.5-14.5); Red Blood Cell (RBC) Count 3.19 mill/uL (4.20-5.40); White Blood Cell (WBC) Count 8.6 thou/uL (4.8-10.8)
[2021-03-10 05:52] LABS: Anion Gap 11 mmol/L (10-20); BUN (Urea Nitrogen) 11 mg/dL (9.8-20.1); Calc. Creatinine Clearance 55 mL/min (70-130); Calcium 7.4 mg/dL (7.8-10.44); Carbon Dioxide 27 mmol/L (23-31); Chloride 105 mmol/L (98-107); Glucose 109 mg/dL (83-110); Potassium 3.5 mmol/L (3.5-5.1); Sodium 139 mmol/L (136-145)
[2021-03-10] MEDS: Pioglitazone HCl 15 MG TAB PO SCH (08:39)
[2021-03-10] MEDS: Potassium Chloride 20 MEQ TAB PO SCH ×2 (08:39→21:34)
[2021-03-10] MEDS: Enoxaparin Sodium 40 MG/0.4 ML SYRINGE SC SCH (08:39)
[2021-03-10] MEDS: Carvedilol 6.25 MG TAB PO SCH ×2 (08:40→21:33)
[2021-03-10] MEDS: hydrALAZINE 25 MG TAB PO SCH ×3 (08:40→21:33)
[2021-03-10] MEDS: Rosuvastatin 10 MG TAB PO SCH (21:34)
[2021-03-11 05:46] LABS: Hemoglobin 9.8 g/dL (12.0-16.0); Lymphocytes 9 % (21-51); MDiff Complete? YES; Mean Corpuscular Hemoglobin 29.7 pg (27.0-31.0); Mean Corpuscular Volume 95.8 fL (78.0-98.0); Mean Platelet Volume 7.7 fL (7.4-10.4); Monocytes 2 % (0-10); Neutrophil 89 % (42-75); Platelet Count 274 thou/uL (130-400); Platelet Morphology Comment Appears Adequate; RBC Distribution Width 15.4 % (11.5-14.5); Red Blood Cell (RBC) Count 3.31 mill/uL (4.20-5.40); White Blood Cell (WBC) Count 19.3 thou/uL (4.8-10.8)
[2021-03-11 05:53] LABS: Anion Gap 8 mmol/L (10-20); BUN (Urea Nitrogen) 14 mg/dL (9.8-20.1); Calc. Creatinine Clearance 49 mL/min (70-130); Calcium 7.5 mg/dL (7.8-10.44); Carbon Dioxide 24 mmol/L (23-31); Chloride 111 mmol/L (98-107); Glucose 130 mg/dL (83-110); Potassium 3.8 mmol/L (3.5-5.1); Sodium 139 mmol/L (136-145)
[2021-03-11] MEDS ORDERED: Acetaminophen 325 MG TAB PO PRN (08:41)
[2021-03-11] MEDS: hydrALAZINE 25 MG TAB PO SCH ×3 (10:39→21:46)
[2021-03-11] MEDS: Enoxaparin Sodium 40 MG/0.4 ML SYRINGE SC SCH (10:39)
[2021-03-11] MEDS: Potassium Chloride 20 MEQ TAB PO SCH ×2 (10:39→20:29)
[2021-03-11] MEDS: Pioglitazone HCl 15 MG TAB PO SCH (10:39)
[2021-03-11] MEDS: Carvedilol 6.25 MG TAB PO SCH ×2 (10:40→20:29)
[2021-03-11] MEDS ORDERED: Magnevist 469MG/ML 20 ML VIAL ONE (14:10)
[2021-03-11] MEDS ORDERED: GoLYTELY 4,000 ml Bottle PO SCH (17:00)
[2021-03-11 19:01] LABS: Bacteria/HPF None Seen HPF (None Seen); Bilirubin Negative (Negative); Blood, Urine Negative (Negative); Clarity Clear (Clear); Glucose, Urine (Dipstick) Normal (Negative); Ketone, Urine Negative (Negative); Leukocyte Negative Leu/uL (Negative); Nitrite Negative (Negative); Protein, Urine (Dipstick) 70 mg/dL (Neg-Trace); RBC/HPF 0-3 HPF (0-3); Specific Gravity, Urine 1.036 (1.002-1.036); Squamous Epithelial 0-3 HPF (0-3); Urobilinogen Normal mg/dL (Less than 2); WBC/HPF 0-3 HPF (0-3); pH, Urine 5.5 (5.0-9.0)
[2021-03-11 19:03] LABS: Urine Culture Reflex No No
[2021-03-11] MEDS: Rosuvastatin 10 MG TAB PO SCH (20:29)
[2021-03-12 04:52] LABS: #Eosinphils 0.1 thou/uL (0.0-0.7); #Lymphocytes 3.5 thou/uL (1.20-3.40); #Monocytes 1.1 thou/uL (0.11-0.59); #Neutrophils 8.5 thou/uL (1.40-6.50); %Basophils 0.1 % (0.0-1.0); %Eosinophils 0.9 % (0.0-10.0); %Lymphocytes 26.5 % (21.0-51.0); %Monocytes 8.2 % (0.0-10.0); %Neutrophils 64.4 % (42.0-75.0); Hemoglobin 10.1 g/dL (12.0-16.0); Mean Corpuscular HGB CONC 30.8 g/dL (32.0-36.0); Mean Corpuscular Hemoglobin 29.7 pg (27.0-31.0); Mean Corpuscular Volume 96.2 fL (78.0-98.0); Mean Platelet Volume 7.9 fL (7.4-10.4); Platelet Count 281 thou/uL (130-400); RBC Distribution Width 15.4 % (11.5-14.5); Red Blood Cell (RBC) Count 3.42 mill/uL (4.20-5.40); White Blood Cell (WBC) Count 13.1 thou/uL (4.8-10.8)
[2021-03-12 05:12] LABS: Anion Gap 11 mmol/L (10-20); BUN (Urea Nitrogen) 21 mg/dL (9.8-20.1); Calc. Creatinine Clearance 47 mL/min (70-130); Calcium 7.9 mg/dL (7.8-10.44); Carbon Dioxide 23 mmol/L (23-31); Chloride 112 mmol/L (98-107); Glucose 102 mg/dL (83-110); Potassium 4.3 mmol/L (3.5-5.1); Sodium 142 mmol/L (136-145)
[2021-03-12] MEDS: Pioglitazone HCl 15 MG TAB PO SCH (09:52)
[2021-03-12] MEDS: Saccharomyces boulardii 250 MG CAP PO SCH (09:52)
[2021-03-12] MEDS: hydrALAZINE 25 MG TAB PO SCH ×3 (09:52→20:12)
[2021-03-12] MEDS: Carvedilol 6.25 MG TAB PO SCH ×2 (09:53→20:12)
[2021-03-12] MEDS: Potassium Chloride 20 MEQ TAB PO SCH ×2 (09:54→20:12)
[2021-03-12] MEDS: Enoxaparin Sodium 40 MG/0.4 ML SYRINGE SC SCH (09:54)
[2021-03-12 14:03] LABS: #Basophils 0.1 thou/uL (0.0-0.2); #Eosinphils 0.1 thou/uL (0.0-0.7); #Lymphocytes 3.1 thou/uL (1.20-3.40); #Monocytes 0.8 thou/uL (0.11-0.59); #Neutrophils 5.2 thou/uL (1.40-6.50); %Basophils 0.7 % (0.0-1.0); %Eosinophils 1.2 % (0.0-10.0); %Lymphocytes 33.6 % (21.0-51.0); %Monocytes 8.2 % (0.0-10.0); %Neutrophils 56.3 % (42.0-75.0); Hemoglobin 10.5 g/dL (12.0-16.0); Mean Corpuscular HGB CONC 31.2 g/dL (32.0-36.0); Mean Corpuscular Hemoglobin 30.2 pg (27.0-31.0); Mean Corpuscular Volume 96.7 fL (78.0-98.0); Platelet Count 292 thou/uL (130-400); RBC Distribution Width 15.4 % (11.5-14.5); Red Blood Cell (RBC) Count 3.49 mill/uL (4.20-5.40); White Blood Cell (WBC) Count 9.3 thou/uL (4.8-10.8)
[2021-03-12 14:11] LABS: Anion Gap 11 mmol/L (10-20); BUN (Urea Nitrogen) 21 mg/dL (9.8-20.1); Calc. Creatinine Clearance 48 mL/min (70-130); Calcium 7.9 mg/dL (7.8-10.44); Carbon Dioxide 25 mmol/L (23-31); Chloride 108 mmol/L (98-107); Glucose 121 mg/dL (83-110); Potassium 4.3 mmol/L (3.5-5.1); Sodium 140 mmol/L (136-145)
[2021-03-12] MEDS: Rosuvastatin 10 MG TAB PO SCH (20:13)
[2021-03-13] MEDS: hydrALAZINE 25 MG TAB PO SCH ×3 (09:53→21:16)
[2021-03-13] MEDS: Pioglitazone HCl 15 MG TAB PO SCH (09:53)
[2021-03-13] MEDS: Carvedilol 6.25 MG TAB PO SCH ×2 (09:53→21:16)
[2021-03-13] MEDS: Potassium Chloride 20 MEQ TAB PO SCH ×2 (09:53→21:17)
[2021-03-13] MEDS: Saccharomyces boulardii 250 MG CAP PO SCH (09:54)
[2021-03-13] MEDS: Enoxaparin Sodium 40 MG/0.4 ML SYRINGE SC SCH (09:55)
[2021-03-13] MEDS ORDERED: GoLYTELY 4,000 ml Bottle PO SCH (20:00)
[2021-03-13] MEDS: Rosuvastatin 10 MG TAB PO SCH (21:17)
[2021-03-13] MEDS ORDERED: Ondansetron PF 4 MG/2 ML Vial IVP PRN (22:58)
[2021-03-14 04:38] LABS: Hemoglobin 9.9 g/dL (12.0-16.0); Mean Corpuscular HGB CONC 31.8 g/dL (32.0-36.0); Mean Corpuscular Hemoglobin 30.6 pg (27.0-31.0); Mean Corpuscular Volume 96.1 fL (78.0-98.0); Mean Platelet Volume 7.6 fL (7.4-10.4); Platelet Count 287 thou/uL (130-400); RBC Distribution Width 15.5 % (11.5-14.5); Red Blood Cell (RBC) Count 3.24 mill/uL (4.20-5.40); White Blood Cell (WBC) Count 8.8 thou/uL (4.8-10.8)
[2021-03-14 04:53] LABS: Anion Gap 9 mmol/L (10-20); BUN (Urea Nitrogen) 17 mg/dL (9.8-20.1); Calc. Creatinine Clearance 49 mL/min (70-130); Calcium 7.7 mg/dL (7.8-10.44); Carbon Dioxide 26 mmol/L (23-31); Chloride 109 mmol/L (98-107); Glucose 107 mg/dL (83-110); Sodium 140 mmol/L (136-145)
[2021-03-14 06:17] LABS: Band 6 % (5-11); Lymphocytes 39 % (21-51); MDiff Complete? YES; Monocytes 8 % (0-10); Neutrophil 47 % (42-75)
[2021-03-14] MEDS: Enoxaparin Sodium 40 MG/0.4 ML SYRINGE SC SCH (06:37)
[2021-03-14] MEDS ORDERED: Lidocaine 1% PF 5 ML VIAL ONE (08:24)
[2021-03-14] MEDS ORDERED: PROPOFOL 200 MG/20 ML VIAL ONE (08:24)
[2021-03-14] MEDS: Carvedilol 6.25 MG TAB PO SCH (10:24)
[2021-03-14] MEDS: Potassium Chloride 20 MEQ TAB PO SCH (10:25)
[2021-03-14] MEDS: hydrALAZINE 25 MG TAB PO SCH (10:25)
[2021-03-14] MEDS: Saccharomyces boulardii 250 MG CAP PO SCH (10:25)
[2021-03-14] MEDS: Pioglitazone HCl 15 MG TAB PO SCH (10:26)
[2021-03-14 11:47] VITALS: TEMP 98.4
[2021-03-14 13:07] VITALS: BP 120/58
== END 2021-03-14 14:40 | disposition home or self-care (01) | DRG 312 ==
LOC: ERS 19:09 → 2SW 22:23 → OBSVTOIN 03-08 10:55 → 2NO 03-13 14:16
PROVIDERS: ADMIT Specialist; ATTEND Specialist
PROC: 0DBM8ZZ Excision of Descending Colon, Via Natural or Artificial Opening Endoscopic (ICD-10-PCS; principal; 2021-03-14)
PROC: 0DBG8ZX Excision of Left Large Intestine, Via Natural or Artificial Opening Endoscopic, Diagnostic (ICD-10-PCS; 2021-03-14)
PROC: 0DBF8ZX Excision of Right Large Intestine, Via Natural or Artificial Opening Endoscopic, Diagnostic (ICD-10-PCS; 2021-03-14)
DX: I95.1 Orthostatic hypotension (principal); K57.20 Diverticulitis of large intestine with perforation and abscess without bleeding; F05 Delirium due to known physiological condition; E87.6 Hypokalemia; Z20.822 Contact with and (suspected) exposure to COVID-19; E78.00 Pure hypercholesterolemia, unspecified; E78.5 Hyperlipidemia, unspecified; E11.9 Type 2 diabetes mellitus without complications; J44.9 Chronic obstructive pulmonary disease, unspecified; F17.210 Nicotine dependence, cigarettes, uncomplicated; K21.9 Gastro-esophageal reflux disease without esophagitis; I25.10 Atherosclerotic heart disease of native coronary artery without angina pectoris; F41.9 Anxiety disorder, unspecified; F32.9 Major depressive disorder, single episode, unspecified; E86.0 Dehydration; I77.810 Thoracic aortic ectasia; R19.5 Other fecal abnormalities; D64.9 Anemia, unspecified; K52.9 Noninfective gastroenteritis and colitis, unspecified; R09.02 Hypoxemia; R50.9 Fever, unspecified; Z95.1 Presence of aortocoronary bypass graft; Z91.19 Patient's noncompliance with other medical treatment and regimen; Z90.49 Acquired absence of other specified parts of digestive tract; Z88.6 Allergy status to analgesic agent; Z79.899 Other long term (current) drug therapy; T44.6X5A Adverse effect of alpha-adrenoreceptor antagonists, initial encounter; T44.7X5A Adverse effect of beta-adrenoreceptor antagonists, initial encounter
CPT/HCPCS: 36415; 36416; 70553; 71045; 71046; 71275; 74177; 80048; 80053; 81001; 82274; 82533; 82550; 83036; 83605; 84443; 84484; 85007; 85025; 85027; 87040; 87045; 87046; 87324; 87427; 87449; 88305; 93005; 93306; 94760; 95712; 95819; 95957; 96365; A9579; G0378; J1650; J2405; J2543; J3480; Q9967; U0002; U0005

== ENCOUNTER 2021-03-29 20:45 | Emergency (ER) | payer MEDICARE ==
[2021-03-29 22:09] LABS: #Lymphocytes 3.8 thou/uL (1.20-3.40); #Monocytes 0.9 thou/uL (0.11-0.59); #Neutrophils 11.2 thou/uL (1.40-6.50); %Basophils 0.2 % (0.0-1.0); %Eosinophils 0.3 % (0.0-10.0); %Lymphocytes 23.7 % (21.0-51.0); %Monocytes 5.5 % (0.0-10.0); %Neutrophils 70.3 % (42.0-75.0); Hemoglobin 9.2 g/dL (12.0-16.0); Mean Corpuscular HGB CONC 32.6 g/dL (32.0-36.0); Mean Corpuscular Hemoglobin 31.6 pg (27.0-31.0); Platelet Count 288 thou/uL (130-400); RBC Distribution Width 16.5 % (11.5-14.5); Red Blood Cell (RBC) Count 2.92 mill/uL (4.20-5.40)
[2021-03-29 22:26] LABS: ALT (SGPT) Less than 7 U/L (8-55); AST (SGOT) 13 U/L (5-34); Albumin 2.5 g/dL (3.4-4.8); Alkaline Phosphatase 92 U/L (40-110); Anion Gap 13 mmol/L (10-20); BUN (Urea Nitrogen) 14 mg/dL (9.8-20.1); Bilirubin, Total 0.4 mg/dL (0.2-1.2); Calc. Creatinine Clearance 0 mL/min (70-130); Calcium 7.9 mg/dL (7.8-10.44); Carbon Dioxide 26 mmol/L (23-31); Chloride 106 mmol/L (98-107); Globulin 2.9 g/dL (2.4-3.5); Glucose 117 mg/dL (83-110); Lipase 13 U/L (8-78); Protein, Total 5.4 g/dL (5.8-8.1); Sodium 142 mmol/L (136-145)
[2021-03-29 22:28] LABS: Potassium 2.7 mmol/L (3.5-5.1)
[2021-03-29] MEDS ORDERED: Potassium Chloride 20 MEQ TAB ONE (23:17)
== END 2021-03-29 23:23 | disposition home or self-care (01) ==
LOC: ERS 20:45
DX: L03.116 Cellulitis of left lower limb (principal); E87.6 Hypokalemia; M79.81 Nontraumatic hematoma of soft tissue; E11.9 Type 2 diabetes mellitus without complications; E78.5 Hyperlipidemia, unspecified; I10 Essential (primary) hypertension; J44.9 Chronic obstructive pulmonary disease, unspecified; F17.210 Nicotine dependence, cigarettes, uncomplicated; Z79.84 Long term (current) use of oral hypoglycemic drugs; Z79.899 Other long term (current) drug therapy; X58.XXXA Exposure to other specified factors, initial encounter
CPT/HCPCS: 36415; 71045; 80053; 83690; 83880; 85025

== ENCOUNTER 2021-06-10 17:59 | Inpatient (IN) | payer MEDICARE ==
[2021-06-10 19:22] LABS: Bacteria/HPF 4+ HPF (None Seen); Bilirubin Negative (Negative); Blood, Urine Negative (Negative); Clarity Turbid (Clear); Glucose, Urine (Dipstick) Normal (Negative); Ketone, Urine Negative (Negative); Leukocyte 25 Leu/uL (Negative); Nitrite Negative (Negative); Protein, Urine (Dipstick) 200 mg/dL (Neg-Trace); RBC/HPF 0-3 HPF (0-3); Specific Gravity, Urine 1.022 (1.002-1.036); Squamous Epithelial 0-3 HPF (0-3); Urobilinogen Normal mg/dL (Less than 2); WBC/HPF 21-50 HPF (0-3)
[2021-06-10 19:28] LABS: #Lymphocytes 0.8 thou/uL (1.20-3.40); #Monocytes 0.6 thou/uL (0.11-0.59); #Neutrophils 14.9 thou/uL (1.40-6.50); %Basophils 0.1 % (0.0-1.0); %Eosinophils 0.1 % (0.0-10.0); %Lymphocytes 4.7 % (21.0-51.0); %Monocytes 3.8 % (0.0-10.0); %Neutrophils 91.4 % (42.0-75.0); Hemoglobin 11.2 g/dL (12.0-16.0); Mean Corpuscular HGB CONC 30.8 g/dL (32.0-36.0); Mean Corpuscular Hemoglobin 28.6 pg (27.0-31.0); Mean Corpuscular Volume 92.9 fL (78.0-98.0); Mean Platelet Volume 8.5 fL (7.4-10.4); Platelet Count 220 thou/uL (130-400); RBC Distribution Width 15.7 % (11.5-14.5); Red Blood Cell (RBC) Count 3.91 mill/uL (4.20-5.40); White Blood Cell (WBC) Count 16.3 thou/uL (4.8-10.8)
[2021-06-10 19:51] LABS: ALT (SGPT) Less than 7 U/L (8-55); AST (SGOT) 13 U/L (5-34); Albumin 2.5 g/dL (3.4-4.8); Alkaline Phosphatase 96 U/L (40-110); Anion Gap 10 mmol/L (10-20); BUN (Urea Nitrogen) 11 mg/dL (9.8-20.1); Bilirubin, Total 0.8 mg/dL (0.2-1.2); Calc. Creatinine Clearance 0 mL/min (70-130); Carbon Dioxide 35 mmol/L (23-31); Chloride 103 mmol/L (98-107); Globulin 2.9 g/dL (2.4-3.5); Glucose 131 mg/dL (83-110); Potassium 3.3 mmol/L (3.5-5.1); Protein, Total 5.4 g/dL (5.8-8.1); Sodium 145 mmol/L (136-145)
[2021-06-10] MEDS ORDERED: Azithromycin 500 MG VIAL ONE (20:04)
[2021-06-10] MEDS ORDERED: cefTRIAXone\\ROCEPHIN 1 GM VIAL ONE (20:04)
[2021-06-10] MEDS ORDERED: Furosemide 40 MG/4 ML VIAL ONE (20:09)
[2021-06-10 20:47] LABS: SARS-CoV-2 NAA Rapid Test Not Detected (NotDetected)
[2021-06-11] MEDS ORDERED: Acetaminophen 325 MG TAB PO PRN (08:45)
[2021-06-11] MEDS ORDERED: Ondansetron PF 4 MG/2 ML Vial IVP PRN (08:45)
[2021-06-11] MEDS: Furosemide 20 MG/2 ML VIAL SLOW IVP SCH (09:25)
[2021-06-11] MEDS: Ferrous Sulfate 325 MG TAB PO SCH (09:26)
[2021-06-11] MEDS: hydrALAZINE 25 MG TAB PO SCH ×3 (09:26→21:00)
[2021-06-11] MEDS: Potassium Chloride 20 MEQ TAB PO SCH ×2 (09:27→17:55)
[2021-06-11] MEDS: Azithromycin 250 MG TAB PO SCH (09:27)
[2021-06-11] MEDS: Nicotine 7 MG PATCH TOP SCH (09:27)
[2021-06-11] MEDS: Carvedilol 6.25 MG TAB PO SCH ×2 (09:35→21:00)
[2021-06-11] MEDS: Budesonide 0.5 MG/2 ML NEB NEB SCH (19:49)
[2021-06-11] MEDS: cefTRIAXone\\ROCEPHIN 1 GM in Sodium Chloride 0.9% 100 ML IVPB SCH (20:58)
[2021-06-11] MEDS: Rosuvastatin 10 MG TAB PO SCH (21:00)
[2021-06-12 06:08] LABS: #Lymphocytes 3.6 thou/uL (1.20-3.40); #Monocytes 0.8 thou/uL (0.11-0.59); #Neutrophils 5.8 thou/uL (1.40-6.50); %Basophils 0.3 % (0.0-1.0); %Eosinophils 0.1 % (0.0-10.0); %Lymphocytes 35.2 % (21.0-51.0); %Monocytes 7.8 % (0.0-10.0); %Neutrophils 56.6 % (42.0-75.0); Hemoglobin 10.2 g/dL (12.0-16.0); Mean Corpuscular HGB CONC 30.3 g/dL (32.0-36.0); Mean Corpuscular Hemoglobin 28.2 pg (27.0-31.0); Mean Corpuscular Volume 93.1 fL (78.0-98.0); Mean Platelet Volume 8.7 fL (7.4-10.4); Platelet Count 187 thou/uL (130-400); RBC Distribution Width 15.7 % (11.5-14.5); White Blood Cell (WBC) Count 10.2 thou/uL (4.8-10.8)
[2021-06-12 06:18] LABS: Hemoglobin A1c 6.4 % (4.0-6.0)
[2021-06-12 06:29] LABS: Anion Gap 12 mmol/L (10-20); BUN (Urea Nitrogen) 14 mg/dL (9.8-20.1); Calc. Creatinine Clearance 50 mL/min (70-130); Calcium 7.3 mg/dL (7.8-10.44); Carbon Dioxide 33 mmol/L (23-31); Chloride 101 mmol/L (98-107); Glucose 94 mg/dL (83-110); Potassium 3.1 mmol/L (3.5-5.1); Sodium 143 mmol/L (136-145)
[2021-06-12] MEDS: Budesonide 0.5 MG/2 ML NEB NEB SCH ×2 (08:15→22:12)
[2021-06-12] MEDS: hydrALAZINE 25 MG TAB PO SCH ×3 (09:09→20:09)
[2021-06-12] MEDS: Carvedilol 6.25 MG TAB PO SCH ×2 (09:09→20:08)
[2021-06-12] MEDS: Ferrous Sulfate 325 MG TAB PO SCH (09:10)
[2021-06-12] MEDS: Potassium Chloride 20 MEQ TAB PO SCH ×2 (09:10→18:01)
[2021-06-12] MEDS: Furosemide 20 MG/2 ML VIAL SLOW IVP SCH (09:10)
[2021-06-12] MEDS: Azithromycin 250 MG TAB PO SCH (09:10)
[2021-06-12] MEDS: Nicotine 7 MG PATCH TOP SCH (09:11)
[2021-06-12] MEDS: Empagliflozin 10 MG TAB PO SCH (09:16)
[2021-06-12] MEDS: Lorazepam 0.5 MG TAB PO PRN (20:08)
[2021-06-12] MEDS: Rosuvastatin 10 MG TAB PO SCH (20:09)
[2021-06-12] MEDS: cefTRIAXone\\ROCEPHIN 1 GM in Sodium Chloride 0.9% 100 ML IVPB SCH (20:09)
[2021-06-13 05:25] VITALS: BMI 23.3
[2021-06-13] MEDS: Carvedilol 6.25 MG TAB PO SCH ×2 (08:28→20:38)
[2021-06-13] MEDS: Azithromycin 250 MG TAB PO SCH (08:28)
[2021-06-13] MEDS: hydrALAZINE 25 MG TAB PO SCH ×3 (08:28→20:38)
[2021-06-13] MEDS: Ferrous Sulfate 325 MG TAB PO SCH (08:29)
[2021-06-13] MEDS: Furosemide 20 MG/2 ML VIAL SLOW IVP SCH (08:30)
[2021-06-13] MEDS: Empagliflozin 10 MG TAB PO SCH (08:30)
[2021-06-13] MEDS: Potassium Chloride 20 MEQ TAB PO SCH ×2 (08:30→16:48)
[2021-06-13] MEDS: Levothyroxine Sodium 25 MCG TAB PO SCH (08:30)
[2021-06-13] MEDS: Nicotine 7 MG PATCH TOP SCH (08:30)
[2021-06-13 10:48] LABS: #Lymphocytes 2.4 thou/uL (1.20-3.40); #Monocytes 0.8 thou/uL (0.11-0.59); #Neutrophils 4.3 thou/uL (1.40-6.50); %Basophils 0.1 % (0.0-1.0); %Eosinophils 0.6 % (0.0-10.0); %Lymphocytes 32.1 % (21.0-51.0); %Monocytes 10.5 % (0.0-10.0); %Neutrophils 56.7 % (42.0-75.0); Hemoglobin 10.2 g/dL (12.0-16.0); Mean Corpuscular HGB CONC 30.6 g/dL (32.0-36.0); Mean Corpuscular Hemoglobin 28.3 pg (27.0-31.0); Mean Corpuscular Volume 92.5 fL (78.0-98.0); Mean Platelet Volume 8.9 fL (7.4-10.4); Platelet Count 185 thou/uL (130-400); RBC Distribution Width 15.6 % (11.5-14.5); Red Blood Cell (RBC) Count 3.62 mill/uL (4.20-5.40); White Blood Cell (WBC) Count 7.6 thou/uL (4.8-10.8)
[2021-06-13] MEDS ORDERED: Furosemide 40 MG/4 ML VIAL SLOW IVP SCH ×2 (11:00→11:30)
[2021-06-13 11:08] LABS: Anion Gap 10 mmol/L (10-20); BUN (Urea Nitrogen) 10 mg/dL (9.8-20.1); Calc. Creatinine Clearance 57 mL/min (70-130); Calcium 7.6 mg/dL (7.8-10.44); Carbon Dioxide 36 mmol/L (23-31); Chloride 100 mmol/L (98-107); Glucose 110 mg/dL (83-110); Potassium 3.1 mmol/L (3.5-5.1); Sodium 143 mmol/L (136-145)
[2021-06-13] MEDS ORDERED: cloNIDine 0.1 MG TAB PO PRN (11:18)
[2021-06-13] MEDS: Budesonide 0.5 MG/2 ML NEB NEB SCH ×2 (13:08→19:21)
[2021-06-13] MEDS: cefTRIAXone\\ROCEPHIN 1 GM in Sodium Chloride 0.9% 100 ML IVPB SCH (20:38)
[2021-06-13] MEDS: Rosuvastatin 10 MG TAB PO SCH (20:39)
[2021-06-13] MEDS: Lorazepam 0.5 MG TAB PO PRN (20:39)
[2021-06-14] MEDS: Levothyroxine Sodium 25 MCG TAB PO SCH (05:57)
[2021-06-14] MEDS ORDERED: Budesonide 0.5 MG/2 ML NEB ONE (07:18)
[2021-06-14] MEDS: Budesonide 0.5 MG/2 ML NEB NEB SCH ×2 (07:25→18:53)
[2021-06-14 08:17] LABS: #Basophils 0.1 thou/uL (0.0-0.2); #Eosinphils 0.1 thou/uL (0.0-0.7); #Lymphocytes 3.2 thou/uL (1.20-3.40); #Monocytes 0.8 thou/uL (0.11-0.59); #Neutrophils 4.2 thou/uL (1.40-6.50); %Basophils 0.8 % (0.0-1.0); %Eosinophils 0.6 % (0.0-10.0); %Lymphocytes 38.3 % (21.0-51.0); %Monocytes 9.4 % (0.0-10.0); %Neutrophils 50.9 % (42.0-75.0); Hemoglobin 10.2 g/dL (12.0-16.0); Mean Corpuscular HGB CONC 29.4 g/dL (32.0-36.0); Mean Corpuscular Hemoglobin 27.1 pg (27.0-31.0); Mean Corpuscular Volume 92.1 fL (78.0-98.0); Mean Platelet Volume 8.6 fL (7.4-10.4); Platelet Count 204 thou/uL (130-400); RBC Distribution Width 15.7 % (11.5-14.5); Red Blood Cell (RBC) Count 3.78 mill/uL (4.20-5.40); White Blood Cell (WBC) Count 8.3 thou/uL (4.8-10.8)
[2021-06-14 08:20] LABS: BUN (Urea Nitrogen) 8 mg/dL (9.8-20.1); Calc. Creatinine Clearance 56 mL/min (70-130); Calcium 7.7 mg/dL (7.8-10.44); Glucose 88 mg/dL (83-110)
[2021-06-14 08:29] LABS: Anion Gap 13 mmol/L (10-20); Carbon Dioxide 38 mmol/L (23-31); Chloride 95 mmol/L (98-107); Potassium 3.1 mmol/L (3.5-5.1); Sodium 143 mmol/L (136-145)
[2021-06-14] MEDS: Ferrous Sulfate 325 MG TAB PO SCH (08:34)
[2021-06-14] MEDS: Potassium Chloride 20 MEQ TAB PO SCH ×2 (08:34→17:21)
[2021-06-14] MEDS: Empagliflozin 10 MG TAB PO SCH (08:34)
[2021-06-14] MEDS: hydrALAZINE 25 MG TAB PO SCH ×3 (08:34→21:06)
[2021-06-14] MEDS: Carvedilol 6.25 MG TAB PO SCH ×2 (08:34→21:07)
[2021-06-14] MEDS: Azithromycin 250 MG TAB PO SCH (08:34)
[2021-06-14] MEDS: Nicotine 7 MG PATCH TOP SCH (08:35)
[2021-06-14] MEDS ORDERED: Furosemide 40 MG/4 ML VIAL SLOW IVP SCH (09:00)
[2021-06-14] MEDS: Lorazepam 0.5 MG TAB PO PRN (21:07)
[2021-06-14] MEDS: Rosuvastatin 10 MG TAB PO SCH (21:07)
[2021-06-14] MEDS: Cefdinir 300 MG CAP PO SCH (21:07)
[2021-06-15] MEDS: Levothyroxine Sodium 25 MCG TAB PO SCH (04:42)
[2021-06-15] MEDS: Budesonide 0.5 MG/2 ML NEB NEB SCH ×2 (06:53→20:39)
[2021-06-15 07:36] LABS: #Eosinphils 0.1 thou/uL (0.0-0.7); #Lymphocytes 2.8 thou/uL (1.20-3.40); #Monocytes 0.8 thou/uL (0.11-0.59); %Basophils 0.1 % (0.0-1.0); %Eosinophils 0.8 % (0.0-10.0); %Lymphocytes 32.5 % (21.0-51.0); %Monocytes 8.9 % (0.0-10.0); %Neutrophils 57.7 % (42.0-75.0); Hemoglobin 10.3 g/dL (12.0-16.0); Mean Corpuscular HGB CONC 32.5 g/dL (32.0-36.0); Mean Corpuscular Hemoglobin 29.9 pg (27.0-31.0); Mean Platelet Volume 9.1 fL (7.4-10.4); Platelet Count 168 thou/uL (130-400); RBC Distribution Width 15.6 % (11.5-14.5); Red Blood Cell (RBC) Count 3.45 mill/uL (4.20-5.40); White Blood Cell (WBC) Count 8.6 thou/uL (4.8-10.8)
[2021-06-15 07:49] LABS: BUN (Urea Nitrogen) 11 mg/dL (9.8-20.1); Calc. Creatinine Clearance 50 mL/min (70-130); Calcium 7.5 mg/dL (7.8-10.44); Glucose 133 mg/dL (83-110)
[2021-06-15 07:58] LABS: Anion Gap 12 mmol/L (10-20); Carbon Dioxide 39 mmol/L (23-31); Chloride 93 mmol/L (98-107); Potassium 3.1 mmol/L (3.5-5.1); Sodium 141 mmol/L (136-145)
[2021-06-15] MEDS: Ferrous Sulfate 325 MG TAB PO SCH (08:16)
[2021-06-15] MEDS: Potassium Chloride 20 MEQ TAB PO SCH ×2 (08:16→17:06)
[2021-06-15] MEDS: Carvedilol 6.25 MG TAB PO SCH ×2 (08:17→21:35)
[2021-06-15] MEDS: hydrALAZINE 25 MG TAB PO SCH ×3 (08:17→21:33)
[2021-06-15] MEDS: Cefdinir 300 MG CAP PO SCH ×2 (08:17→21:36)
[2021-06-15] MEDS: Empagliflozin 10 MG TAB PO SCH (08:17)
[2021-06-15] MEDS: Furosemide 40 MG TAB PO SCH (08:17)
[2021-06-15] MEDS: Azithromycin 250 MG TAB PO SCH (08:17)
[2021-06-15] MEDS: Nicotine 7 MG PATCH TOP SCH (08:18)
[2021-06-15] MEDS ORDERED: Potassium Chloride 20 MEQ TAB PO SCH ×2 (08:30→08:45)
[2021-06-15] MEDS: Rosuvastatin 10 MG TAB PO SCH (21:36)
[2021-06-16] MEDS: Levothyroxine Sodium 25 MCG TAB PO SCH (06:30)
[2021-06-16] MEDS: Budesonide 0.5 MG/2 ML NEB NEB SCH (07:40)
[2021-06-16 07:49] LABS: #Lymphocytes 1.9 thou/uL (1.20-3.40); #Monocytes 0.9 thou/uL (0.11-0.59); #Neutrophils 8.5 thou/uL (1.40-6.50); %Basophils 0.1 % (0.0-1.0); %Eosinophils 0.4 % (0.0-10.0); %Lymphocytes 16.9 % (21.0-51.0); %Monocytes 7.7 % (0.0-10.0); Hemoglobin 11.1 g/dL (12.0-16.0); Mean Corpuscular HGB CONC 31.5 g/dL (32.0-36.0); Mean Corpuscular Hemoglobin 28.7 pg (27.0-31.0); Mean Corpuscular Volume 91.2 fL (78.0-98.0); Platelet Count 195 thou/uL (130-400); RBC Distribution Width 15.8 % (11.5-14.5); Red Blood Cell (RBC) Count 3.87 mill/uL (4.20-5.40); White Blood Cell (WBC) Count 11.4 thou/uL (4.8-10.8)
[2021-06-16 07:54] LABS: BUN (Urea Nitrogen) 12 mg/dL (9.8-20.1); Calc. Creatinine Clearance 50 mL/min (70-130); Glucose 108 mg/dL (83-110)
[2021-06-16 08:03] LABS: Anion Gap 15 mmol/L (10-20); Carbon Dioxide 36 mmol/L (23-31); Chloride 93 mmol/L (98-107); Potassium 4.3 mmol/L (3.5-5.1); Sodium 140 mmol/L (136-145)
[2021-06-16] MEDS: Cefdinir 300 MG CAP PO SCH (08:36)
[2021-06-16] MEDS: Carvedilol 6.25 MG TAB PO SCH (08:36)
[2021-06-16] MEDS: Nicotine 7 MG PATCH TOP SCH (08:36)
[2021-06-16] MEDS: Furosemide 40 MG TAB PO SCH (08:36)
[2021-06-16] MEDS: Azithromycin 250 MG TAB PO SCH (08:37)
[2021-06-16] MEDS: Potassium Chloride 20 MEQ TAB PO SCH (08:37)
[2021-06-16] MEDS: Ferrous Sulfate 325 MG TAB PO SCH (08:37)
[2021-06-16] MEDS: Empagliflozin 10 MG TAB PO SCH (08:37)
[2021-06-16] MEDS: hydrALAZINE 25 MG TAB PO SCH ×2 (08:37→14:35)
[2021-06-16 11:43] VITALS: BP 117/57; TEMP 99.1
== END 2021-06-16 16:53 | disposition home or self-care (01) | DRG 291 ==
LOC: ERS 17:59 → T4-A 20:24
PROVIDERS: ADMIT Specialist; ATTEND Specialist
DX: I11.0 Hypertensive heart disease with heart failure (principal); J18.9 Pneumonia, unspecified organism; J96.21 Acute and chronic respiratory failure with hypoxia; N39.0 Urinary tract infection, site not specified; K92.2 Gastrointestinal hemorrhage, unspecified; I50.43 Acute on chronic combined systolic (congestive) and diastolic (congestive) heart failure; J44.9 Chronic obstructive pulmonary disease, unspecified; E78.5 Hyperlipidemia, unspecified; K21.9 Gastro-esophageal reflux disease without esophagitis; I25.10 Atherosclerotic heart disease of native coronary artery without angina pectoris; F17.210 Nicotine dependence, cigarettes, uncomplicated; F41.9 Anxiety disorder, unspecified; Z20.822 Contact with and (suspected) exposure to COVID-19; F32.9 Major depressive disorder, single episode, unspecified; Z95.1 Presence of aortocoronary bypass graft; Z90.49 Acquired absence of other specified parts of digestive tract; Z98.890 Other specified postprocedural states; Z88.8 Allergy status to other drugs, medicaments and biological substances; Z79.899 Other long term (current) drug therapy
CPT/HCPCS: 0240U; 36415; 36416; 71045; 71046; 80048; 80053; 81003; 81015; 82274; 83036; 83605; 83880; 84443; 84484; 85025; 87040; 93005; 94640; 94760; J0456; J0696; J1940; J3490; J7620; J7626